=== PATIENT | female | born 1970 | race Caucasian/White ===

== ENCOUNTER 2017-11-14 07:56 | Day surgery (SDC) | payer MEDICAID ==
[~2017-11-14 07:56] MED LIST: Lidocaine 1% 4 ML ONE; Lidocaine 1%/Sod Bicarbonate in NS 8.4% 1 ML Syringe IDERM PRN; Midazolam 1 MG/ML 2 ML SDV ONE; Morphine PF 1 MG/ML Amp ONE; Propofol 200 MG/20 ML SDV ONE; Sodium Chloride 0.9% 10 ML Syringe FLUSH PRN; fentaNYL 100 MCG/2 ML SDV ONE
[2017-11-14] MEDS ORDERED: Ketorolac 30 MG/ML SDV ONE ×2 (08:00→11:09)
[2017-11-14] MEDS: Lactated Ringers 1,000 ML IV SCH ×2 (08:20→12:43)
[2017-11-14] MEDS ORDERED: ceFAZolin 1 GM Vial ONE (08:23)
[2017-11-14] MEDS ORDERED: Propofol 200 MG/20 ML SDV ONE ×3 (08:25→11:08)
--- NOTE | 2017-11-14 08:45 | PCM.CONS ---
H&P History of Present Illness - General Date of Service: 11/14/17 Admit Problem/Dx: Admission Diagnosis/Problem Admission Diagnosis/Problem Osteoarthritis of knee Source of Information: Patient, Provider, RN, RN Notes Reviewed, Other ( surgical notes ) - History of Present Illness Initial Comments - Free Text/Narative: Imani Curry is a 47 yo female patient of Dr. Littlejohn who is post-operative day 0 of right TKA. Hospital medicine was consulted for post-operative medical care. At this time she is resting comfortably in bed. Pain is controlled. She denies any chest pain, shortness of breath, palpitations, nausea, or vomiting. She carries a history of: HTN, IBS, chronic back pain, osteoporosis, lower back fusion, peripheral neuropathy, anxiety, insomnia, obesity. She was never a smoker. She is a full code. Her primary care provider is Dr. Chau in [place]. Right Knee Pain Score (Numeric/FACES): 6 - Related Data Allergies/Adverse Reactions: Allergies Allergy/AdvReac Type Severity Reaction Status Date / Time ampicillin Allergy Airway Verified 11/14/17 13:38 Tightness Home Medications: Home Meds Gabapentin [Neurontin] 1,200 mg PO TID 04/17/16 [History] Dhea/Estriol/Testerone 1 dose VAG ASDIRECTED 11/11/17 [History] Fluticasone Propionate [Flonase Allergy Relief] 1 - 2 spray NASBOTH DAILY PRN [History] LORazepam [LORazepam] 0.5 mg PO TID PRN 11/11/17 [History] Metoprolol Succinate [Toprol Xl] 150 mg PO DAILY 11/11/17 [History] Multivitamin [Daily Multiple Vitamin] 1 tab PO DAILY 11/11/17 [History] Progesterone,Micronized [Prometrium] 200 mg PO BEDTIME 11/11/17 [History] Spironolact/Hydrochlorothiazid [Spironolactone-HCTZ 25-25] 1 tab PO DAILY [History] Zolpidem Tartrate [Ambien] 10 mg PO BEDTIME PRN 11/11/17 [History] traMADol HCl [Tramadol HCl] 50 mg PO TID PRN 11/11/17 [History] Past Medical History HEENT History: Reports: Impaired Vision Cardiovascular History: Reports: Hypertension Respiratory History: Reports: None Gastrointestinal History: Reports: Chronic Diarrhea, Irritable Bowel Syndrome Genitourinary History: Reports: Other (See Below) [employer] INTERN History: Reports: Other (See Below) Other OB/BYN History: decreased libido, anorgasmia Musculoskeletal History: Reports: Back Pain, Chronic, Osteoarthritis, Other ( See Below) Other Musculoskeletal History: lower back fusion Neurological History: Reports: Neuropathy, Peripheral Psychiatric History: Reports: Anxiety, Other (See Below) Other Psychiatric History: insomnia Endocrine/Metabolic History: Reports: Obesity/BMI 30+ Hematologic History: Reports: None Immunologic History: Reports: None Oncologic (Cancer) History: Reports: None Dermatologic History: Reports: None - Past Surgical History Head Surgeries/Procedures: Reports: None HEENT Surgical History: Reports: None Cardiovascular Surgical History: Reports: None Respiratory Surgical History: Reports: None GI Surgical History: Reports: Appendectomy, Colonoscopy Female Surgical History: Reports: Hysterectomy Neurological Surgical History: Reports: None Other Musculoskeletal Surgeries/Procedures:: bilateral bunionectomies Oncologic Surgical History: Reports: None Dermatological Surgical History: Reports: None Social & Family History - Tobacco Use Smoking Status *Q: Never Smoker - Caffeine Use Caffeine Use: Reports: Soda - Recreational Drug Use Recreational Drug Use: No H&P Review of Systems - Review of Systems: Review Of Systems: See Below General: Reports: No Symptoms HEENT: Reports: No Symptoms Pulmonary: Reports: No Symptoms Cardiovascular: Reports: No Symptoms Gastrointestinal: Reports: Nausea. Denies: Abdominal Pain, Constipation, Diarrhea, Decreased Appetite, Difficulty Swallowing, Vomiting Genitourinary: Reports: No Symptoms Musculoskeletal: Reports: Joint Pain Skin: Reports: No Symptoms Psychiatric: Reports: No Symptoms Neurological: Reports: No Symptoms Hematologic/Lymphatic: Reports: No Symptoms Immunologic: Reports: No Symptoms Exam - Exam Exam: See Below - Exam Quality Assessment: Urinary Catheter, DVT Prophylaxis General: Alert, Oriented, Cooperative. No: Mild Distress HEENT: PERRLA, Hearing Intact, Mucosa Moist & Mexican Hat, Nares Patent, Normal Nasal Septum, Posterior Pharynx Clear, Conjunctiva Clear, EOMI, EACs Clear, TMs Clear Neck: Supple, Trachea Midline Lungs: Clear to Auscultation, Normal Respiratory Effort Cardiovascular: Regular Rate, Regular Rhythm GI/Abdominal Exam: Normal Bowel Sounds, Soft, Non-Tender, No Organomegaly, No Distention, No Abnormal Bruit, No Mass, Pelvis Stable (Female) Exam: Deferred Rectal (Female) Exam: Deferred Back Exam: Normal Inspection, Full Range of Motion Extremities: Normal Inspection, No Pedal Edema, Normal Capillary Refill, Leg Pain, Limited Range of Motion, Other (BRAULIO bandage in place on right leg. Bandage is dry and intact. Cooling pack in place ) Peripheral Pulses: 2+: Radial (L), Radial (R), Posterior Tibial (L), Posterior Tibial (R), Dorsalis Pedis (L), Dorsalis Pedis (R) Skin: Warm, Dry, Intact Neurological: Cranial Nerves Intact (grossly ) Neuro Extensive - Mental Status: Alert, Oriented x3, Normal Mood/Affect, Normal Cognition, Memory Intact Psychiatric: Alert, Normal Affect, Normal Mood - Patient Data Result Diagrams: 11/14/17 08:22 Consult PN Assessment/Plan POD#: 0 Procedures: Procedures C-REACTIVE PROTEIN (04/17/16) COMPLETE CBC W/AUTO DIFF WBC (04/17/16) COMPREHEN METABOLIC PANEL (04/17/16) CT ABD & PELV W/CONTRAST (04/17/16) EMERGENCY DEPT VISIT (04/17/16) HYDRATE IV INFUSION ADD-ON (04/17/16) MR-STAPH DNA AMP PROBE (11/01/17) ROUTINE VENIPUNCTURE (04/17/16) THER/PROPH/DIAG INJ IV PUSH (04/17/16) TX/PRO/DX INJ NEW DRUG ADDON (04/17/16) TX/PRO/DX INJ SAME DRUG CARDIAC RN (04/17/16) URINALYSIS AUTO W/SCOPE (04/17/16) (1) S/P total knee arthroplasty SNOMED Code(s): 1083840701094, 2787257513701 Code(s): Z96.659 - PRESENCE OF UNSPECIFIED ARTIFICIAL KNEE JOINT Priority: High Current Visit: Yes Qualifiers: Laterality: right Qualified Code(s): Z96.651 - Presence of right artificial knee joint (2) Osteoarthritis SNOMED Code(s): 626790253 Code(s): M19.90 - UNSPECIFIED OSTEOARTHRITIS, UNSPECIFIED SITE Priority: High Current Visit: Yes Qualifiers: Osteoarthritis location: knee Osteoarthritis type: primary Laterality: right Qualified Code(s): M17.11 - Unilateral primary osteoarthritis, right knee (3) HTN (hypertension) SNOMED Code(s): 96785307 Code(s): I10 - ESSENTIAL (PRIMARY) HYPERTENSION Priority: Low Current Visit: No Qualifiers: Hypertension type: unspecified Qualified Code(s): I10 - Essential (primary ) hypertension (4) IBS (irritable bowel syndrome) SNOMED Code(s): 20616686 Code(s): K58.9 - IRRITABLE BOWEL SYNDROME WITHOUT DIARRHEA Priority: Low Current Visit: No Qualifiers: Irritable bowel syndrome type: unspecified Qualified Code(s): K58.9 - Irritable bowel syndrome without diarrhea (5) Chronic back pain SNOMED Code(s): 534335599 Code(s): M54.9 - DORSALGIA, UNSPECIFIED; G89.29 - OTHER CHRONIC PAIN Priority: Low Current Visit: No Qualifiers: Back pain location: back pain in unspecified location Back pain laterality : unspecified Qualified Code(s): M54.9 - Dorsalgia, unspecified; G89.29 - Other chronic pain; G89.29 - Other chronic pain (6) Peripheral neuropathy SNOMED Code(s): 132704783 Code(s): G62.9 - POLYNEUROPATHY, UNSPECIFIED Priority: Low Current Visit : No Qualifiers: Peripheral neuropathy type: polyneuropathy, unspecified Qualified Code(s): G62.9 - Polyneuropathy, unspecified (7) Anxiety SNOMED Code(s): 03610916 Code(s): F41.9 - ANXIETY DISORDER, UNSPECIFIED Priority: Low Current Visit: No (8) Insomnia SNOMED Code(s): 979894222 Code(s): G47.00 - INSOMNIA, UNSPECIFIED Priority: Low Current Visit: No Qualifiers: Insomnia type: unspecified Qualified Code(s): G47.00 - Insomnia, unspecified (9) Obesity (BMI 30-39.9) SNOMED Code(s): 878891842 Code(s): E66.9 - OBESITY, UNSPECIFIED Priority: Low Current Visit: No (10) Nausea SNOMED Code(s): 711394767 Code(s): R11.0 - NAUSEA Priority: High Current Visit: Yes Problem List Initiated/Reviewed/Updated: Yes Plan: I/P: Acute: S/P Right total knee arthroplasty - post-operative day 0 -DVT prophylaxis and pain management per primary care team -PT/OT -IS/RT -Monitor oxygen saturation -Titrate oxygen as needed -Vital signs stable -Monitor labs -Pre-operative Hgb was 15.2 -Pre-operative leukocytosis (13.4), CRP was normal Osteoarthritis of Right knee -Pain management per primary care team Hypokalemia -Potassium 3.2 pre-operatively -Supplement -Monitor with AM labs Nausea, mild -Post-operative -Zofran now -Scopolamine patch if needed Chronic (Home meds): Long Qt - telemetry HTN IBS Chronic back pain Peripheral neuropathy Anxiety Insomnia Obesity Plan: CM for discharge planning GI prophylaxis Home medications as indicated Other orders as listed above Routine AM labs She is a full code. Her PCP is Dr. Chau in [place] Thank you for allowing us to participate in the care of this patient!! Requesting Provider: Dr. Littlejohn Date Consult Requested: 11/14/17 Reason for Consult: Post-operative medical management Patient History Reviewed: Yes Admission H&P Reviewed: Yes Time Spent (in minutes): 25
[2017-11-14] MEDS ORDERED: Bupivacaine 0.25% 30 ML SDV ONE (09:10)
[2017-11-14] MEDS ORDERED: Clindamycin Phosphate 900 MG in Dextrose 5% in Water 100 ML IV ONE ×2 (09:30)
--- NOTE | 2017-11-14 09:48 | PCM.PREANE ---
Preanesthetic Assessment - Anesthesia/Transfusion/Family Hx Anesthesia History: Prior Anesthesia Reaction Type of Anesthesia Reaction: Excessive Nausea/Vomiting Family History of Anesthesia Reaction: No Transfusion History: No Prior Transfusion(s) - Review of Systems General: No Symptoms Pulmonary: No Symptoms Cardiovascular: No Symptoms Gastrointestinal: No Symptoms Neurological: No Symptoms Other: Reports: Easy Bruising, Sinus Problem (infections frequent), Anxiety - Physical Assessment NPO Status Date: 11/13/17 NPO Status Time: 23:00 O2 Sat by Pulse Oximetry: 96 Respiratory Rate: 16 Vital Signs: Last Vital Signs Temp 97.8 F 11/14/17 08:20 Pulse 72 11/14/17 08:20 Resp 16 11/14/17 08:20 BP 134/93 H 11/14/17 08:20 Pulse Ox 96 11/14/17 08:20 Height: 5 ft 7 in Weight: 102.058 kg ASA Class: 2 Mental Status: Alert & Oriented x3 Airway Class: Mallampati = 1 Dentition: Reports: Normal Dentition Thyro-Mental Finger Breadths: 3 Mouth Opening Finger Breadths: 3 ROM/Head Extension: Full Lungs: Clear to Auscultation, Normal Respiratory Effort Cardiovascular: Regular Rate, Regular Rhythm - Lab Values: Laboratory Last Values Sodium 140 mEq/L (136-145) 11/14/17 08:22 Potassium 3.2 mEq/L (3.5-5.1) L 11/14/17 08:22 Chloride 99 mEq/L (98-107) 11/14/17 08:22 Carbon Dioxide 30 mEq/L (21-32) 11/14/17 08:22 Anion Gap 14.2 (5-15) 11/14/17 08:22 BUN 14 mg/dL (7-18) 11/14/17 08:22 Creatinine 0.8 mg/dL (0.55-1.02) 11/14/17 08:22 Est Cr Clr Drug Dosing TNP 11/14/17 08:22 Estimated GFR (MDRD) > 60 mL/min (>60) 11/14/17 08:22 BUN/Creatinine Ratio 17.5 (14-18) 11/14/17 08:22 Glucose 119 mg/dL (74-106) H 11/14/17 08:22 Calcium 9.7 mg/dL (8.5-10.1) 11/14/17 08:22 - Allergies Allergies/Adverse Reactions: Allergies Allergy/AdvReac Type Severity Reaction Status Date / Time ampicillin Allergy Airway Verified 11/11/17 13:19 Tightness - Blood Blood Available: No - Anesthesia Plan Beta Mic: Metoprolol Med Last Dose Date: 11/14/17 Med Last Dose Time: 06:00 - Acknowledgements Anesthesia Type Planned: Spinal Pt an Appropriate Candidate for the Planned Anesthesia: Yes Alternatives and Risks of Anesthesia Discussed w Pt/Guardian: Yes Pt/Guardian Understands and Agrees with Anesthesia Plan: Yes PreAnesthesia Questionnaire HEENT History: Reports: Impaired Vision Cardiovascular History: Reports: Hypertension Respiratory History: Reports: None Gastrointestinal History: Reports: Irritable Bowel Syndrome Genitourinary History: Reports: Other (See Below) SAFETY RISK LEAD History: Reports: Other (See Below) Other OB/BYN History: decreased libido, anorgasmia Musculoskeletal History: Reports: Back Pain, Chronic, Osteoarthritis, Other ( See Below) Other Musculoskeletal History: lower back fusion Neurological History: Reports: Neuropathy, Peripheral Psychiatric History: Reports: Anxiety, Other (See Below) Other Psychiatric History: insomnia Endocrine/Metabolic History: Reports: Obesity/BMI 30+ Hematologic History: Reports: None Immunologic History: Reports: None Oncologic (Cancer) History: Reports: None Dermatologic History: Reports: None - Past Surgical History Head Surgeries/Procedures: Reports: None HEENT Surgical History: Reports: None Cardiovascular Surgical History: Reports: None Respiratory Surgical History: Reports: None GI Surgical History: Reports: Appendectomy, Colonoscopy Female Surgical History: Reports: Hysterectomy Neurological Surgical History: Reports: None, Spinal Fusion, Other (See Below) Other Musculoskeletal Surgeries/Procedures:: bilateral bunionectomies Oncologic Surgical History: Reports: None Dermatological Surgical History: Reports: None - SUBSTANCE USE Smoking Status *Q: Never Smoker Tobacco Use Within Last Twelve Months: No Second Hand Smoke Exposure: No Days Per Week of Alcohol Use: 0 Recreational Drug Use History: No - HOME MEDS Home Medications: Home Meds Gabapentin [Neurontin] 1,200 mg PO TID 04/17/16 [History] Dhea/Estriol/Testerone 1 dose VAG ASDIRECTED 11/11/17 [History] Fluticasone Propionate [Flonase Allergy Relief] 1 - 2 spray NASBOTH DAILY PRN [History] LORazepam [LORazepam] 0.5 mg PO TID PRN 11/11/17 [History] Metoprolol Succinate [Toprol Xl] 150 mg PO DAILY 11/11/17 [History] Multivitamin [Daily Multiple Vitamin] 1 tab PO DAILY 11/11/17 [History] Progesterone,Micronized [Prometrium] 200 mg PO BEDTIME 11/11/17 [History] Spironolact/Hydrochlorothiazid [Spironolactone-HCTZ 25-25] 1 tab PO DAILY [History] Zolpidem Tartrate [Ambien] 10 mg PO BEDTIME PRN 11/11/17 [History] traMADol HCl [Tramadol HCl] 50 mg PO TID PRN 11/11/17 [History] - CURRENT (IN HOUSE) MEDS Current Meds: Current Medications Hydrocodone Bitart/Acetaminophen (Gray 325-5 Mg) 1 - 2 tab PO Q4H PRN PRN Reason: Pain Aspirin (Ecotrin) 325 mg PO BID BLANCO Bisacodyl (Dulcolax) 5 mg PO DAILY PRN PRN Reason: Constipation Morphine Sulfate 8 mg/Epinephrine HCl 0.3 mg/Ketorolac Tromethamine 30 mg/ Sodium Chloride 27.9 ml 0 mg .XX ONETIME ONE Stop: 11/14/17 10:01 Cyclobenzaprine HCl (Flexeril) 10 mg PO TID PRN PRN Reason: Spasms Diphenhydramine HCl (Benadryl) 25 mg IVPUSH Q4H PRN PRN Reason: Nausea Docusate Sodium (Colace) 100 mg PO BID BLANCO Famotidine (Pepcid) 20 mg PO BID [facility] Lactated Ringer's (Ringers, Lactated) 1,000 mls @ 125 mls/hr IV ASDIRECTED [facility] Stop: 11/14/17 23:00 Last Admin: 11/14/17 08:20 Dose: 125 mls/hr Clindamycin Phosphate 900 mg/ (Dextrose/Water) 106 mls @ 100 mls/hr IV Q6H [facility] Stop: 11/15/17 07:01 Clindamycin Phosphate 900 mg/ (Dextrose/Water) 106 mls @ 212 mls/hr IV ONETIME ONE Stop: 11/14/17 09:59 Last Admin: 11/14/17 09:08 Dose: 212 mls/hr Ketorolac Tromethamine (Toradol) 15 mg IVPUSH Q6H PRN PRN Reason: Pain Lidocaine/Sodium Bicarbonate (Buffered Lidocaine 1% In Ns 8.4%) 0.25 ml IDERM ONETIME PRN PRN Reason: Prior to IV Start Stop: 11/14/17 18:00 Last Admin: 11/14/17 08:19 Dose: 0.25 ml Magnesium Hydroxide (Milk Of Magnesia) 30 ml PO BID PRN PRN Reason: Constipation Morphine Sulfate (Morphine) 2 mg IVPUSH Q2H PRN PRN Reason: Breakthrough Pain Naloxone HCl (Narcan) 0.1 mg IVPUSH Q5M PRN PRN Reason: Oversedation Ondansetron HCl (Zofran) 4 mg IVPUSH Q6H PRN PRN Reason: Nausea/Vomiting Senna (Senna) 8.6 mg PO BID PRN PRN Reason: Constipation Sodium Chloride (Saline Flush) 10 ml FLUSH ASDIRECTED PRN PRN Reason: Keep Vein Open Stop: 11/14/17 18:00 Discontinued Medications Bupivacaine HCl (Marcaine 0.25%) Confirm Administered Dose 30 ml .ROUTE .STK- MED ONE Stop: 11/14/17 09:11 Cefazolin Sodium (Ancef) Confirm Administered Dose 2 gm .ROUTE .STK-MED ONE Stop: 11/14/17 08:24 Clindamycin Phosphate (Cleocin) Confirm Administered Dose 900 mg .ROUTE .STK- MED ONE Stop: 11/14/17 09:11 Fentanyl (Sublimaze) Confirm Administered Dose 100 mcg .ROUTE .STK-MED ONE Stop: 11/14/17 07:43 Lidocaine HCl (Xylocaine-Mpf 1%) Confirm Administered Dose 4 mls @ as directed .ROUTE .STK-MED ONE Stop: 11/14/17 07:42 Iodine (Iodine 2% Mild Tincture) Confirm Administered Dose 30 ml .ROUTE .STK- MED ONE Stop: 11/14/17 09:11 Ketorolac Tromethamine (Toradol) Confirm Administered Dose 30 mg .ROUTE .STK- MED ONE Stop: 11/14/17 08:01 Midazolam HCl (Versed 1 Mg/Ml) Confirm Administered Dose 2 mg .ROUTE .STK-MED ONE Stop: 11/14/17 07:43 Morphine Sulfate (Duramorph Pf) Confirm Administered Dose 1 mg .ROUTE .STK-MED ONE Stop: 11/14/17 07:35 Propofol (Diprivan 20 Ml) Confirm Administered Dose 200 mg .ROUTE .STK-MED ONE Stop: 11/14/17 07:43 Propofol (Diprivan 20 Ml) Confirm Administered Dose 200 mg .ROUTE .STK-MED ONE Stop: 11/14/17 08:26 Tranexamic Acid (Cyklokapron) Confirm Administered Dose 1,000 mg .ROUTE .STK- MED ONE Stop: 11/14/17 09:11 Vancomycin HCl (Vancomycin) Confirm Administered Dose 1 gm .ROUTE .STK-MED ONE Stop: 11/14/17 09:11
[2017-11-14] MEDS ORDERED: Midazolam 1 MG/ML 2 ML SDV ONE (10:25)
[2017-11-14] MEDS ORDERED: fentaNYL 100 MCG/2 ML SDV IVPUSH PRN (10:26)
[2017-11-14] MEDS ORDERED: Promethazine 6.25 MG in Sodium Chloride 0.9% 9 ML IV PRN (10:26)
[2017-11-14] MEDS ORDERED: Ondansetron 4 MG/2 ML SDV IVPUSH PRN ×2 (10:26→11:00)
[2017-11-14] MEDS ORDERED: Lactated Ringers 1,000 ML ONE ×2 (10:27→11:23)
[2017-11-14] MEDS ORDERED: Ondansetron 4 MG/2 ML SDV ONE (10:29)
[2017-11-14] MEDS: Iodine/Sodium Iodide 2% Tincture 30 ML Bottle ONE ×2 (10:54→11:10)
[2017-11-14] MEDS: Clindamycin Phosphate 900 MG/6 ML AdvVial ONE ×2 (10:54→11:13)
[2017-11-14] MEDS: Morphine 8 MG, EPINEPHrine 0.3 MG, Ketorolac 30 MG, Sodium Chloride 0.9% 27.9 ML ONE ×8 (10:55→11:18)
[2017-11-14] MEDS: Vancomycin 1 GM SDV ONE ×2 (10:55→11:20)
[2017-11-14] MEDS: Bupivacaine 0.25% 30 ML SDV ONE ×2 (10:55→11:19)
[2017-11-14] MEDS ORDERED: Sennosides 8.6 MG Tab PO PRN (11:00)
[2017-11-14] MEDS ORDERED: Naloxone 0.4 MG/ML SDV IVPUSH PRN (11:00)
[2017-11-14] MEDS ORDERED: Bisacodyl 5 MG Tab PO PRN (11:00)
[2017-11-14] MEDS ORDERED: diphenhydrAMINE 50 MG/ML SDV IVPUSH PRN (11:00)
[2017-11-14] MEDS ORDERED: Magnesium Hydroxide 400 MG/5 ML Susp 30 ML Cup PO PRN (11:00)
[2017-11-14] MEDS ORDERED: Morphine 4 MG/ML Syringe IVPUSH PRN (11:00)
[2017-11-14] MEDS ORDERED: LORazepam 0.5 MG Tab PO PRN (11:44)
[2017-11-14] MEDS ORDERED: Fluticasone Propionate [Flonase Allergy Relief] NASBOTH PRN (11:44)
[2017-11-14] MEDS ORDERED: DHEA VAG SCH (11:45)
[2017-11-14] MEDS ORDERED: ESTRIOL VAG SCH (11:45)
[2017-11-14] MEDS ORDERED: [UNRECOGNIZED DRUG - OTHER] VAG SCH (11:45)
[2017-11-14] MEDS ORDERED: Ropivacaine 0.5% 5 MG/ML 30 ML SDV ONE (11:53)
[2017-11-14] MEDS ORDERED: EPINEPHrine 1 MG/ML SDV ONE (11:53)
--- NOTE | 2017-11-14 12:01 | PCM.POSTAN ---
POST ANESTHESIA ASSESSMENT - MENTAL STATUS Mental Status: Alert, Oriented - VITAL SIGNS Pulse Rate: 77 SaO2: 98 Resp Rate: 12 Blood Pressure: 113/60 Temperature: 98.4 F - RESPIRATORY Respiratory Status: Respiratory Rate WNL, Airway Patent, O2 Saturation Stable, Supplemental Oxygen - CARDIOVASCULAR CV Status: Pulse Rate WNL, Blood Pressure Stable - GASTROINTESTINAL GI Status: No Symptoms - PAIN Pain Score: 0 - POST OP HYDRATION Hydration Status: Adequate & Stable
[2017-11-14] MEDS ORDERED: Scopolamine 1 MG Transdermal Patch TOP PRN (13:34)
--- NOTE | 2017-11-14 13:50 | CR ---
Right knee: AP and lateral views of the right knee were obtained. Parison: No prior study. Knee prosthesis is seen. Components are aligned. Underlying bony structures are intact. Impression: 1. Satisfactory postoperative radiographic appearance, recently placed right knee prosthesis. Diagnostic code #2
--- NOTE | 2017-11-14 14:25 | PCM.SN ---
- Free Text/Narrative Note: Right selective femoral nerve block at the adductor canal for post-procedure pain control under US guidance requested by Dr. Littlejohn. Time Out: 1211 Start: 1215 End: 1225 Chart reviewed. Consent signed. Questions answered. Appropriate monitors applied. Time out performed. Right mid-shaft femur identified with ultrasound, scanning medially of femur, the femoral artery in the adductor canal visualized , and the femoral nerve located laterally to the artery. The skin was prepped lateral to the ultrasound probe with chlorahexadine. The 21ga 4 insulated block needle was inserted under direct ultrasound guidance into the adductor canal. 25mL of 0.5% ropivacaine with 1:200,000 epinephrine was injected circumferentially around the nerve with intermittent negative aspiration noted. Patient tolerated the procedure well. See pictures on progress note and vital signs on nurses notes. Block completed in PACU with Kusum Watkins's STRETCH BOX TENDER assist. Nelson Blanchard CRNA
[2017-11-14] MEDS: Ketorolac 15 MG/ML SDV IVPUSH PRN (14:55)
[2017-11-14] MEDS ORDERED: Potassium Chloride 20 MEQ Tab.ER PO ONE (16:00)
[2017-11-14] MEDS: Gabapentin 600 MG Tab PO SCH ×2 (16:12→20:32)
[2017-11-14] MEDS: Clindamycin Phosphate 900 MG in Dextrose 5% in Water 100 ML IV SCH ×2 (17:30)
[2017-11-14] MEDS: Docusate Sodium 100 MG Cap PO SCH (20:32)
[2017-11-14] MEDS: Acetaminophen/HYDROcodone 325-5 MG Tab PO PRN (20:33)
[2017-11-14] MEDS: Famotidine 20 MG Tab PO SCH (20:33)
[2017-11-14] MEDS: Potassium Chloride 20 MEQ Tab.ER PO SCH (20:33)
[2017-11-14] MEDS ORDERED: Zolpidem 10 MG Tab PO PRN (21:00)
[2017-11-15] MEDS: Acetaminophen/HYDROcodone 325-5 MG Tab PO PRN ×3 (00:49→11:38)
[2017-11-15] MEDS: Clindamycin Phosphate 900 MG in Dextrose 5% in Water 100 ML IV SCH ×6 (00:58→10:31)
[2017-11-15] MEDS: Ketorolac 15 MG/ML SDV IVPUSH PRN ×2 (02:23→13:52)
[2017-11-15] MEDS ORDERED: PROGESTERONE MICRONIZED 200 MG PO SCH (06:00)
--- NOTE | 2017-11-15 06:35 | PCM.CONSN ---
- General Info Date of Service: 11/15/17 Admission Dx/Problem (Free Text): Admission Diagnosis/Problem Admission Diagnosis/Problem Osteoarthritis of knee Subjective Update: In to see Imani this morning. She is doing very well. PT/OT has been working with her. They're going to give her shower soon. No overnight complaints. Pain is controlled at 4 out of 10. She has no concerns. Functional Status: Reports: Pain Controlled, Tolerating Diet, Ambulating, Urinating, Incentive Spirometry. Denies: New Symptoms - Review of Systems General: Reports: No Symptoms. Denies: Weakness HEENT: Reports: No Symptoms Pulmonary: Reports: No Symptoms. Denies: Shortness of Breath, Cough, Sputum, Wheezing Cardiovascular: Reports: No Symptoms. Denies: Chest Pain, Dyspnea on Exertion Gastrointestinal: Reports: No Symptoms. Denies: Abdominal Pain, Constipation, Diarrhea, Nausea, Vomiting Genitourinary: Reports: No Symptoms. Denies: Dysuria, Frequency, Burning, Pain Musculoskeletal: Reports: Joint Pain Skin: Reports: No Symptoms Neurological: Reports: No Symptoms Psychiatric: Reports: No Symptoms - Patient Data Vitals - Most Recent: Last Vital Signs Temp 98.4 F 11/15/17 00:39 Pulse 88 11/14/17 14:02 Resp 18 11/15/17 05:00 BP 125/70 11/15/17 00:39 Pulse Ox 96 11/15/17 05:00 Weight - Most Recent: 225 lb I&O - Last 24 Hours: Intake & Output 11/14/17 11/14/17 11/15/17 14:59 22:59 06:59 Intake Total 800 400 Output Total 315 400 Balance 485 0 Lab Results Last 24 Hours: Laboratory Results - last 24 hr 11/14/17 Range/Units 08:22 Sodium 140 (136-145) mEq/L Potassium 3.2 L (3.5-5.1) mEq/L Chloride 99 (98-107) mEq/L Carbon Dioxide 30 (21-32) mEq/L Anion Gap 14.2 (5-15) BUN 14 (7-18) mg/dL Creatinine 0.8 (0.55-1.02) mg/dL Est Cr Clr Drug Dosing TNP Estimated GFR (MDRD) > 60 (>60) mL/min BUN/Creatinine Ratio 17.5 (14-18) Glucose 119 H (74-106) mg/dL Calcium 9.7 (8.5-10.1) mg/dL Med Orders - Current: Current Medications Hydrocodone Bitart/Acetaminophen ([place] 325-5 Mg) 1 - 2 tab PO Q4H PRN PRN Reason: Pain Last Admin: 11/15/17 00:49 Dose: 2 tab Aspirin (Ecotrin) 325 mg PO BID [facility] Bisacodyl (Dulcolax) 5 mg PO DAILY PRN PRN Reason: Constipation Cyclobenzaprine HCl (Flexeril) 10 mg PO TID PRN PRN Reason: Spasms Diphenhydramine HCl (Benadryl) 25 mg IVPUSH Q4H PRN PRN Reason: Nausea Docusate Sodium (Colace) 100 mg PO BID [facility] Last Admin: 11/14/17 20:32 Dose: 100 mg Famotidine (Pepcid) 20 mg PO BID [facility] Last Admin: 11/14/17 20:33 Dose: 20 mg Gabapentin (Neurontin) 1,200 mg PO TID [facility] Last Admin: 11/14/17 20:32 Dose: 1,200 mg Hydrochlorothiazide (Hydrochlorothiazide) 25 mg PO DAILY [facility] Clindamycin Phosphate 900 mg/ (Dextrose/Water) 106 mls @ 212 mls/hr IV Q8H [facility] Stop: 11/15/17 10:29 Last Admin: 11/15/17 02:25 Dose: 212 mls/hr Ketorolac Tromethamine (Toradol) 15 mg IVPUSH Q6H PRN PRN Reason: Pain Last Admin: 11/15/17 02:23 Dose: 15 mg Lorazepam (Ativan) 0.5 mg PO TID PRN PRN Reason: Anxiety Magnesium Hydroxide (Milk Of Magnesia) 30 ml PO BID PRN PRN Reason: Constipation Metoprolol Succinate (Toprol Xl) 150 mg PO DAILY [facility] Morphine Sulfate (Morphine) 2 mg IVPUSH Q2H PRN PRN Reason: Breakthrough Pain Multivitamins (Thera) 1 each PO DAILY [facility] Naloxone HCl (Narcan) 0.1 mg IVPUSH Q5M PRN PRN Reason: Oversedation Ondansetron HCl (Zofran) 4 mg IVPUSH Q6H PRN PRN Reason: Nausea/Vomiting Last Admin: 11/14/17 16:06 Dose: 4 mg Dhea/Estriol/Testerone Compounded Med 0 each VAG ASDIRECTED [facility] Fluticasone Propionate [Flonase Allergy Relief] 1 - 2 each NASBOTH DAILY PRN PRN Reason: Allergies Progesterone, Micronized [ Prometrium] 200 Mg 0 each PO ACBRK [facility] Potassium Chloride (Klor-Con M20) 40 meq PO TID [facility] Stop: 11/15/17 15:01 Last Admin: 11/14/17 20:33 Dose: 40 meq Scopolamine (Scopolamine) 1 each TOP ONETIME PRN PRN Reason: Nausea/Vomiting Senna (Senna) 8.6 mg PO BID PRN PRN Reason: Constipation Spironolactone (Aldactone) 25 mg PO DAILY [facility] Zolpidem Tartrate (Ambien) 10 mg PO BEDTIME PRN PRN Reason: Insomnia Discontinued Medications Bupivacaine HCl (Marcaine 0.25%) Confirm Administered Dose 30 ml .ROUTE .STK- MED ONE Stop: 11/14/17 09:11 Bupivacaine HCl (Marcaine 0.25%) Confirm Administered Dose 30 ml .ROUTE .STK- MED ONE Stop: 11/14/17 09:47 Last Admin: 11/14/17 11:19 Dose: 30 ml Cefazolin Sodium (Ancef) Confirm Administered Dose 2 gm .ROUTE .STK-MED ONE Stop: 11/14/17 08:24 Clindamycin Phosphate (Cleocin) Confirm Administered Dose 900 mg .ROUTE .STK- MED ONE Stop: 11/14/17 09:11 Last Admin: 11/14/17 11:13 Dose: 900 mg Morphine Sulfate 8 mg/Epinephrine HCl 0.3 mg/Ketorolac Tromethamine 30 mg/ Sodium Chloride 27.9 ml 0 mg .XX ONETIME ONE Stop: 11/14/17 10:01 Last Admin: 11/14/17 11:18 Dose: 38.3 mg Epinephrine HCl (Adrenalin) Confirm Administered Dose 1 mg .ROUTE .STK-MED ONE Stop: 11/14/17 11:54 Fentanyl (Sublimaze) Confirm Administered Dose 100 mcg .ROUTE .STK-MED ONE Stop: 11/14/17 07:43 Fentanyl (Sublimaze) 50 mcg IVPUSH Q5M PRN PRN Reason: Pain Stop: 11/14/17 10:27 Lactated Ringer's (Ringers, Lactated) 1,000 mls @ 125 mls/hr IV ASDIRECTED [facility] Stop: 11/14/17 23:00 Last Admin: 11/14/17 12:43 Dose: 125 mls/hr Lidocaine HCl (Xylocaine-Mpf 1%) Confirm Administered Dose 4 mls @ as directed .ROUTE .STK-MED ONE Stop: 11/14/17 07:42 Clindamycin Phosphate 900 mg/ (Dextrose/Water) 106 mls @ 212 mls/hr IV ONETIME ONE Stop: 11/14/17 09:59 Last Admin: 11/14/17 09:08 Dose: 212 mls/hr Lactated Ringer's (Ringers, Lactated) Confirm Administered Dose 1,000 mls @ as directed .ROUTE .STK-MED ONE Stop: 11/14/17 10:28 Promethazine HCl 6.25 mg/ (Sodium Chloride) 9.25 mls @ 5 mls/min IV ONETIME PRN PRN Reason: Nausea Stop: 11/14/17 16:00 Lactated Ringer's (Ringers, Lactated) Confirm Administered Dose 1,000 mls @ as directed .ROUTE .STK-MED ONE Stop: 11/14/17 11:24 Iodine (Iodine 2% Mild Tincture) Confirm Administered Dose 30 ml .ROUTE .STK- MED ONE Stop: 11/14/17 09:11 Last Admin: 11/14/17 11:10 Dose: 18 ml Ketorolac Tromethamine (Toradol) Confirm Administered Dose 30 mg .ROUTE .STK- MED ONE Stop: 11/14/17 08:01 Ketorolac Tromethamine (Toradol) Confirm Administered Dose 30 mg .ROUTE .STK- MED ONE Stop: 11/14/17 11:10 Lidocaine/Sodium Bicarbonate (Buffered Lidocaine 1% In Ns 8.4%) 0.25 ml IDERM ONETIME PRN PRN Reason: Prior to IV Start Stop: 11/14/17 18:00 Last Admin: 11/14/17 08:19 Dose: 0.25 ml Midazolam HCl (Versed 1 Mg/Ml) Confirm Administered Dose 2 mg .ROUTE .STK-MED ONE Stop: 11/14/17 07:43 Midazolam HCl (Versed 1 Mg/Ml) Confirm Administered Dose 2 mg .ROUTE .STK-MED ONE Stop: 11/14/17 10:26 Morphine Sulfate (Duramorph Pf) Confirm Administered Dose 1 mg .ROUTE .STK-MED ONE Stop: 11/14/17 07:35 Ondansetron HCl (Zofran) Confirm Administered Dose 4 mg .ROUTE .STK-MED ONE Stop: 11/14/17 10:30 Ondansetron HCl (Zofran) 4 mg IVPUSH ONETIME PRN PRN Reason: Nausea/Vomiting Stop: 11/14/17 16:00 Last Admin: 11/14/17 12:30 Dose: 4 mg Potassium Chloride (Klor-Con M20) 40 meq PO ONETIME ONE Stop: 11/14/17 16:01 Last Admin: 11/14/17 16:13 Dose: 40 meq Propofol (Diprivan 20 Ml) Confirm Administered Dose 200 mg .ROUTE .STK-MED ONE Stop: 11/14/17 07:43 Propofol (Diprivan 20 Ml) Confirm Administered Dose 200 mg .ROUTE .STK-MED ONE Stop: 11/14/17 08:26 Propofol (Diprivan 20 Ml) Confirm Administered Dose 200 mg .ROUTE .STK-MED ONE Stop: 11/14/17 10:50 Propofol (Diprivan 20 Ml) Confirm Administered Dose 200 mg .ROUTE .STK-MED ONE Stop: 11/14/17 11:09 Ropivacaine (Naropin 0.5%) Confirm Administered Dose 30 ml .ROUTE .STK-MED ONE Stop: 11/14/17 11:54 Sodium Chloride (Saline Flush) 10 ml FLUSH ASDIRECTED PRN PRN Reason: Keep Vein Open Stop: 11/14/17 18:00 Tranexamic Acid (Cyklokapron) Confirm Administered Dose 1,000 mg .ROUTE .STK- MED ONE Stop: 11/14/17 09:11 Last Admin: 11/14/17 11:25 Dose: 1,000 mg Vancomycin HCl (Vancomycin) Confirm Administered Dose 1 gm .ROUTE .STK-MED ONE Stop: 11/14/17 09:11 Last Admin: 11/14/17 11:20 Dose: 1 gm - Exam Quality Assessment: DVT Prophylaxis General: Alert, Oriented, Cooperative, No Acute Distress HEENT: Pupils Equal, Pupils Reactive, EOMI, Mucous Membr. Moist/[place] Neck: Supple, Trachea Midline, No JVD Lungs: Clear to Auscultation, Normal Respiratory Effort Cardiovascular: Regular Rate, Regular Rhythm GI/Abdominal Exam: Normal Bowel Sounds, Soft, Non-Tender, No Organomegaly, No Distention, No Abnormal Bruit, No Mass, Pelvis Stable (Female) Exam: Deferred Extremities: No Pedal Edema, Normal Capillary Refill, Leg Pain (5/10 but controlled ), Limited Range of Motion, Other (Moses bandage and cooling pack on right leg ) Peripheral Pulses: 2+: Radial (L), Radial (R), Posterior Tibial (L), Posterior Tibial (R), Dorsalis Pedis (L), Dorsalis Pedis (R) Skin: Warm, Dry, Intact Wound/Incisions: Dressing Dry and Intact, No Drainage Neurological: No New Focal Deficit Psy/Mental Status: Alert, Normal Affect, Normal Mood Consult PN Assessment/Plan POD#: 1 Procedures: Procedures C-REACTIVE PROTEIN (04/17/16) COMPLETE CBC W/AUTO DIFF WBC (04/17/16) COMPREHEN METABOLIC PANEL (04/17/16) CT ABD & PELV W/CONTRAST (04/17/16) EMERGENCY DEPT VISIT (04/17/16) HYDRATE IV INFUSION ADD-ON (04/17/16) MR-STAPH DNA AMP PROBE (11/01/17) ROUTINE VENIPUNCTURE (04/17/16) THER/PROPH/DIAG INJ IV PUSH (04/17/16) TX/PRO/DX INJ NEW DRUG ADDON (04/17/16) TX/PRO/DX INJ SAME DRUG CROSS COUNTRY/TRACK AND FIELD COACH (04/17/16) URINALYSIS AUTO W/SCOPE (04/17/16) (1) S/P total knee arthroplasty SNOMED Code(s): 0246706566510, 1630983408490 Code(s): Z96.659 - PRESENCE OF UNSPECIFIED ARTIFICIAL KNEE JOINT Priority: High Current Visit: Yes Qualifiers: Laterality: right Qualified Code(s): Z96.651 - Presence of right artificial knee joint (2) Osteoarthritis SNOMED Code(s): 261017658 Code(s): M19.90 - UNSPECIFIED OSTEOARTHRITIS, UNSPECIFIED SITE Priority: High Current Visit: Yes Qualifiers: Osteoarthritis location: knee Osteoarthritis type: primary Laterality: right Qualified Code(s): M17.11 - Unilateral primary osteoarthritis, right knee (3) HTN (hypertension) SNOMED Code(s): 18247898 Code(s): I10 - ESSENTIAL (PRIMARY) HYPERTENSION Priority: Low Current Visit: No Qualifiers: Hypertension type: unspecified Qualified Code(s): I10 - Essential (primary ) hypertension (4) IBS (irritable bowel syndrome) SNOMED Code(s): 10238031 Code(s): K58.9 - IRRITABLE BOWEL SYNDROME WITHOUT DIARRHEA Priority: Low Current Visit: No Qualifiers: Irritable bowel syndrome type: unspecified Qualified Code(s): K58.9 - Irritable bowel syndrome without diarrhea (5) Chronic back pain SNOMED Code(s): 961593965 Code(s): M54.9 - DORSALGIA, UNSPECIFIED; G89.29 - OTHER CHRONIC PAIN Priority: Low Current Visit: No Qualifiers: Back pain location: back pain in unspecified location Back pain laterality : unspecified Qualified Code(s): M54.9 - Dorsalgia, unspecified; G89.29 - Other chronic pain; G89.29 - Other chronic pain (6) Peripheral neuropathy SNOMED Code(s): 342384031 Code(s): G62.9 - POLYNEUROPATHY, UNSPECIFIED Priority: Low Current Visit : No Qualifiers: Peripheral neuropathy type: polyneuropathy, unspecified Qualified Code(s): G62.9 - Polyneuropathy, unspecified (7) Anxiety SNOMED Code(s): 49971845 Code(s): F41.9 - ANXIETY DISORDER, UNSPECIFIED Priority: Low Current Visit: No (8) Insomnia SNOMED Code(s): 322086192 Code(s): G47.00 - INSOMNIA, UNSPECIFIED Priority: Low Current Visit: No Qualifiers: Insomnia type: unspecified Qualified Code(s): G47.00 - Insomnia, unspecified (9) Obesity (BMI 30-39.9) SNOMED Code(s): 715736928 Code(s): E66.9 - OBESITY, UNSPECIFIED Priority: Low Current Visit: No (10) Nausea SNOMED Code(s): 823347471 Code(s): R11.0 - NAUSEA Priority: High Current Visit: Yes Problem List Initiated/Reviewed/Updated: Yes My Orders Last 24 Hours: My Active Orders 11/14/17 21:00 Potassium Chloride [Klor-Con M20] 40 meq PO TID Plan: I/P: Acute: S/P Right total knee arthroplasty - post-operative day 0 -DVT prophylaxis and pain management per primary care team -PT/OT -IS/RT -Monitor oxygen saturation -Titrate oxygen as needed -Vital signs stable -Monitor labs -Pre-operative Hgb was 15.2, 13.2 today -Pre-operative leukocytosis (13.4)-->14.01 today, CRP was normal Osteoarthritis of Right knee -Pain management per primary care team Hypokalemia -resolved -Potassium 3.2 pre-operatively, 4.3 today -Supplement -Monitor with AM labs -Defer to PCP to monitor and treat as needed Nausea, mild - resolved -Post-operative -Zofran now -Scopolamine patch if needed Chronic (Home meds): Long Qt - telemetry HTN IBS Chronic back pain Peripheral neuropathy Anxiety Insomnia Obesity Plan: CM for discharge planning GI prophylaxis Home medications as indicated Other orders as listed above Routine AM labs She is a full code. Her PCP is Dr. Chau in [place] From a hospitalist standpoint she is doing very well and cleared for discharge pending primary orthopedic team agreement. Thank you for allowing us to participate in the care of this patient!!
[2017-11-15] MEDS: Cyclobenzaprine 10 MG Tab PO PRN ×2 (06:52→13:51)
--- NOTE | 2017-11-15 08:43 | PCM.SURGPN ---
- General Info Date of Service: 11/15/17 POD#: 1 Functional Status: Reports: Pain Controlled, Tolerating Diet, Ambulating, Urinating, Incentive Spirometry - Review of Systems Musculoskeletal: Reports: Other (The pt states pain is controlled and she is prepared for discharge to home.) - Patient Data Vitals - Most Recent: Last Vital Signs Temp 99.7 F 11/15/17 04:28 Pulse 88 11/14/17 14:02 Resp 18 11/15/17 05:00 BP 121/60 11/15/17 04:28 Pulse Ox 96 11/15/17 05:00 Weight - Most Recent: 225 lb I&O - Last 24 Hours: Intake & Output 11/14/17 11/15/17 11/15/17 22:59 06:59 14:59 Intake Total 400 450 Output Total 400 Balance 0 450 Lab Results Last 24 Hrs: Laboratory Results - last 24 hr 11/14/17 11/15/17 11/15/17 Range/Units 08:22 05:42 05:52 WBC 14.01 H (3.98-10.04) K/mm3 RBC 4.39 (3.98-5.22) M/mm3 Hgb 13.2 (11.2-15.7) gm/L Hct 40.6 (34.1-44.9) % MCV 92.5 (79.4-94.8) fl MCH 30.1 (25.6-32.2) pg MCHC 32.5 (32.2-35.5) g/dl RDW Std Deviation 47.1 H (36.4-46.3) fL Plt Count 243 (182-369) K/mm3 MPV 9.7 (9.4-12.3) fl Sodium 140 139 (136-145) mEq/L Potassium 3.2 L 4.3 (3.5-5.1) mEq/L Chloride 99 102 (98-107) mEq/L Carbon Dioxide 30 27 (21-32) mEq/L Anion Gap 14.2 14.3 (5-15) BUN 14 9 (7-18) mg/dL Creatinine 0.8 0.8 (0.55-1.02) mg/dL Est Cr Clr Drug Dosing TNP 84.54 Estimated GFR (MDRD) > 60 > 60 (>60) mL/min BUN/Creatinine Ratio 17.5 11.3 L (14-18) Glucose 119 H 128 H (74-106) mg/dL Calcium 9.7 8.8 (8.5-10.1) mg/dL Total Bilirubin 0.7 (0.2-1.0) mg/dL AST 18 (15-37) U/L ALT 26 (14-59) U/L Alkaline Phosphatase 39 L (46-116) U/L Total Protein 6.1 L (6.4-8.2) g/dl Albumin 3.1 L (3.4-5.0) g/dl Globulin 3.0 gm/dL Albumin/Globulin Ratio 1.0 (1-2) Med Orders - Current: Current Medications Hydrocodone Bitart/Acetaminophen ([place] 325-5 Mg) 1 - 2 tab PO Q4H PRN PRN Reason: Pain Last Admin: 11/15/17 06:51 Dose: 2 tab Aspirin (Ecotrin) 325 mg PO BID [facility] Bisacodyl (Dulcolax) 5 mg PO DAILY PRN PRN Reason: Constipation Cyclobenzaprine HCl (Flexeril) 10 mg PO TID PRN PRN Reason: Spasms Last Admin: 11/15/17 06:52 Dose: 10 mg Diphenhydramine HCl (Benadryl) 25 mg IVPUSH Q4H PRN PRN Reason: Nausea Docusate Sodium (Colace) 100 mg PO BID [facility] Last Admin: 11/14/17 20:32 Dose: 100 mg Famotidine (Pepcid) 20 mg PO BID [facility] Last Admin: 11/14/17 20:33 Dose: 20 mg Gabapentin (Neurontin) 1,200 mg PO TID [facility] Last Admin: 11/14/17 20:32 Dose: 1,200 mg Hydrochlorothiazide (Hydrochlorothiazide) 25 mg PO DAILY [facility] Clindamycin Phosphate 900 mg/ (Dextrose/Water) 106 mls @ 212 mls/hr IV Q8H [facility] Stop: 11/15/17 10:29 Last Admin: 11/15/17 02:25 Dose: 212 mls/hr Ketorolac Tromethamine (Toradol) 15 mg IVPUSH Q6H PRN PRN Reason: Pain Last Admin: 11/15/17 02:23 Dose: 15 mg Lorazepam (Ativan) 0.5 mg PO TID PRN PRN Reason: Anxiety Magnesium Hydroxide (Milk Of Magnesia) 30 ml PO BID PRN PRN Reason: Constipation Metoprolol Succinate (Toprol Xl) 150 mg PO DAILY [facility] Morphine Sulfate (Morphine) 2 mg IVPUSH Q2H PRN PRN Reason: Breakthrough Pain Multivitamins (Thera) 1 each PO DAILY [facility] Naloxone HCl (Narcan) 0.1 mg IVPUSH Q5M PRN PRN Reason: Oversedation Ondansetron HCl (Zofran) 4 mg IVPUSH Q6H PRN PRN Reason: Nausea/Vomiting Last Admin: 11/14/17 16:06 Dose: 4 mg Dhea/Estriol/Testerone Compounded Med 0 each VAG ASDIRECTED [facility] Fluticasone Propionate [Flonase Allergy Relief] 1 - 2 each NASBOTH DAILY PRN PRN Reason: Allergies Progesterone, Micronized [ Prometrium] 200 Mg 0 each PO ACBRK [facility] Last Admin: 11/15/17 06:47 Dose: Not Given Potassium Chloride (Klor-Con M20) 40 meq PO TID [facility] Stop: 11/15/17 15:01 Last Admin: 11/14/17 20:33 Dose: 40 meq Scopolamine (Scopolamine) 1 each TOP ONETIME PRN PRN Reason: Nausea/Vomiting Senna (Senna) 8.6 mg PO BID PRN PRN Reason: Constipation Spironolactone (Aldactone) 25 mg PO DAILY [facility] Zolpidem Tartrate (Ambien) 10 mg PO BEDTIME PRN PRN Reason: Insomnia Discontinued Medications Bupivacaine HCl (Marcaine 0.25%) Confirm Administered Dose 30 ml .ROUTE .STK- MED ONE Stop: 11/14/17 09:11 Bupivacaine HCl (Marcaine 0.25%) Confirm Administered Dose 30 ml .ROUTE .STK- MED ONE Stop: 11/14/17 09:47 Last Admin: 11/14/17 11:19 Dose: 30 ml Cefazolin Sodium (Ancef) Confirm Administered Dose 2 gm .ROUTE .STK-MED ONE Stop: 11/14/17 08:24 Clindamycin Phosphate (Cleocin) Confirm Administered Dose 900 mg .ROUTE .STK- MED ONE Stop: 11/14/17 09:11 Last Admin: 11/14/17 11:13 Dose: 900 mg Morphine Sulfate 8 mg/Epinephrine HCl 0.3 mg/Ketorolac Tromethamine 30 mg/ Sodium Chloride 27.9 ml 0 mg .XX ONETIME ONE Stop: 11/14/17 10:01 Last Admin: 11/14/17 11:18 Dose: 38.3 mg Epinephrine HCl (Adrenalin) Confirm Administered Dose 1 mg .ROUTE .STK-MED ONE Stop: 11/14/17 11:54 Fentanyl (Sublimaze) Confirm Administered Dose 100 mcg .ROUTE .STK-MED ONE Stop: 11/14/17 07:43 Fentanyl (Sublimaze) 50 mcg IVPUSH Q5M PRN PRN Reason: Pain Stop: 11/14/17 10:27 Lactated Ringer's (Ringers, Lactated) 1,000 mls @ 125 mls/hr IV ASDIRECTED BLANCO Stop: 11/14/17 23:00 Last Admin: 11/14/17 12:43 Dose: 125 mls/hr Lidocaine HCl (Xylocaine-Mpf 1%) Confirm Administered Dose 4 mls @ as directed .ROUTE .STK-MED ONE Stop: 11/14/17 07:42 Clindamycin Phosphate 900 mg/ (Dextrose/Water) 106 mls @ 212 mls/hr IV ONETIME ONE Stop: 11/14/17 09:59 Last Admin: 11/14/17 09:08 Dose: 212 mls/hr Lactated Ringer's (Ringers, Lactated) Confirm Administered Dose 1,000 mls @ as directed .ROUTE .STK-MED ONE Stop: 11/14/17 10:28 Promethazine HCl 6.25 mg/ (Sodium Chloride) 9.25 mls @ 5 mls/min IV ONETIME PRN PRN Reason: Nausea Stop: 11/14/17 16:00 Lactated Ringer's (Ringers, Lactated) Confirm Administered Dose 1,000 mls @ as directed .ROUTE .STK-MED ONE Stop: 11/14/17 11:24 Iodine (Iodine 2% Mild Tincture) Confirm Administered Dose 30 ml .ROUTE .STK- MED ONE Stop: 11/14/17 09:11 Last Admin: 11/14/17 11:10 Dose: 18 ml Ketorolac Tromethamine (Toradol) Confirm Administered Dose 30 mg .ROUTE .STK- MED ONE Stop: 11/14/17 08:01 Ketorolac Tromethamine (Toradol) Confirm Administered Dose 30 mg .ROUTE .STK- MED ONE Stop: 11/14/17 11:10 Lidocaine/Sodium Bicarbonate (Buffered Lidocaine 1% In Ns 8.4%) 0.25 ml IDERM ONETIME PRN PRN Reason: Prior to IV Start Stop: 11/14/17 18:00 Last Admin: 11/14/17 08:19 Dose: 0.25 ml Midazolam HCl (Versed 1 Mg/Ml) Confirm Administered Dose 2 mg .ROUTE .STK-MED ONE Stop: 11/14/17 07:43 Midazolam HCl (Versed 1 Mg/Ml) Confirm Administered Dose 2 mg .ROUTE .STK-MED ONE Stop: 11/14/17 10:26 Morphine Sulfate (Duramorph Pf) Confirm Administered Dose 1 mg .ROUTE .STK-MED ONE Stop: 11/14/17 07:35 Ondansetron HCl (Zofran) Confirm Administered Dose 4 mg .ROUTE .STK-MED ONE Stop: 11/14/17 10:30 Ondansetron HCl (Zofran) 4 mg IVPUSH ONETIME PRN PRN Reason: Nausea/Vomiting Stop: 11/14/17 16:00 Last Admin: 11/14/17 12:30 Dose: 4 mg Potassium Chloride (Klor-Con M20) 40 meq PO ONETIME ONE Stop: 11/14/17 16:01 Last Admin: 11/14/17 16:13 Dose: 40 meq Propofol (Diprivan 20 Ml) Confirm Administered Dose 200 mg .ROUTE .STK-MED ONE Stop: 11/14/17 07:43 Propofol (Diprivan 20 Ml) Confirm Administered Dose 200 mg .ROUTE .STK-MED ONE Stop: 11/14/17 08:26 Propofol (Diprivan 20 Ml) Confirm Administered Dose 200 mg .ROUTE .STK-MED ONE Stop: 11/14/17 10:50 Propofol (Diprivan 20 Ml) Confirm Administered Dose 200 mg .ROUTE .STK-MED ONE Stop: 11/14/17 11:09 Ropivacaine (Naropin 0.5%) Confirm Administered Dose 30 ml .ROUTE .STK-MED ONE Stop: 11/14/17 11:54 Sodium Chloride (Saline Flush) 10 ml FLUSH ASDIRECTED PRN PRN Reason: Keep Vein Open Stop: 11/14/17 18:00 Tranexamic Acid (Cyklokapron) Confirm Administered Dose 1,000 mg .ROUTE .STK- MED ONE Stop: 11/14/17 09:11 Last Admin: 11/14/17 11:25 Dose: 1,000 mg Vancomycin HCl (Vancomycin) Confirm Administered Dose 1 gm .ROUTE .STK-MED ONE Stop: 11/14/17 09:11 Last Admin: 11/14/17 11:20 Dose: 1 gm - Exam Wound/Incisions: Dressing Dry and Intact General: Alert, Cooperative, No Acute Distress Lungs: Normal Respiratory Effort Extremities: Other (NVS intact for RLE. Ben's negative.) - Problem List Review Problem List Initiated/Reviewed/Updated: Yes - My Orders Last 24 Hours: Active Orders 24 hr Category Date Time Status Communication Order [RC] ASDIRECTED Care 11/14/17 10:26 Active Notify Provider [RC] ASDIRECTED Care 11/14/17 10:26 Active Oxygen Therapy [RC] ASDIRECTED Care 11/14/17 10:26 Active Pulse Oximetry [RC] ASDIRECTED Care 11/14/17 10:26 Active Ready for Discharge [RC] PER UNIT ROUTINE Care 11/15/17 08:41 Ordered Telemetry Monitoring [Cardiac Monitoring] [RC] . Care 11/14/17 14:23 Active DIRECTED Vital Signs [RC] Q1HR Care 11/14/17 10:26 Active Regular Diet [DIET] Diet 11/14/17 Lunch Active Acetaminophen/HYDROcodone [[place] 325-5 MG] Med 11/14/17 11:00 Active 1 - 2 tab PO Q4H PRN Aspirin [Ecotrin] Med 11/15/17 09:00 Active 325 mg PO BID Bisacodyl [Dulcolax] Med 11/14/17 11:00 Active 5 mg PO DAILY PRN Clindamycin Phosphate [Cleocin] 900 mg Med 11/14/17 18:00 Active Dextrose 5% in Water 100 ml IV Q8H Cyclobenzaprine [Flexeril] Med 11/14/17 11:00 Active 10 mg PO TID PRN Docusate Sodium [Colace] Med 11/14/17 21:00 Active 100 mg PO BID Famotidine [Pepcid] Med 11/14/17 21:00 Active 20 mg PO BID Gabapentin [Neurontin] Med 11/14/17 15:00 Active 1,200 mg PO TID Hydrochlorothiazide Med 11/15/17 09:00 Active 25 mg PO DAILY Ketorolac [Toradol] Med 11/14/17 11:00 Active 15 mg IVPUSH Q6H PRN LORazepam [Ativan] Med 11/14/17 11:44 Active 0.5 mg PO TID PRN Magnesium Hydroxide [Milk of Magnesia] Med 11/14/17 11:00 Active 30 ml PO BID PRN Metoprolol Succinate [Toprol XL] Med 11/15/17 09:00 Active 150 mg PO DAILY Morphine Med 11/14/17 11:00 Active 2 mg IVPUSH Q2H PRN Multivitamins,Therapeutic [Thera] Med 11/15/17 09:00 Active 1 each PO DAILY Naloxone [Narcan] Med 11/14/17 11:00 Active 0.1 mg IVPUSH Q5M PRN Ondansetron [Zofran] Med 11/14/17 11:00 Active 4 mg IVPUSH Q6H PRN Patient's Own Medication [Ptom] Med 11/15/17 06:00 Active 0 each PO ACBRK Patient's Own Medication [Ptom] Med 11/14/17 11:45 Active 0 each VAG ASDIRECTED Patient's Own Medication [Ptom] Med 11/14/17 11:44 Active 1 - 2 each NASBOTH DAILY PRN Potassium Chloride [Klor-Con M20] Med 11/14/17 21:00 Active 40 meq PO TID Scopolamine Med 11/14/17 13:34 Active 1 each TOP ONETIME PRN Sennosides [Senna] Med 11/14/17 11:00 Active 8.6 mg PO BID PRN Spironolactone [Aldactone] Med 11/15/17 09:00 Active 25 mg PO DAILY Zolpidem [Ambien] Med 11/14/17 21:00 Active 10 mg PO BEDTIME PRN diphenhydrAMINE [Benadryl] Med 11/14/17 11:00 Active 25 mg IVPUSH Q4H PRN Pulse Oximetry Continuous Monitoring [OM.PC] Routine Oth 11/14/17 10:26 Active Medication Orders Hydrocodone Bitart/Acetaminophen ([place] 325-5 Mg) 1 - 2 tab PO Q4H PRN PRN Reason: Pain Last Admin: 11/15/17 06:51 Dose: 2 tab Admin: 11/15/17 00:49 Dose: 2 tab Admin: 11/14/17 20:33 Dose: 2 tab Aspirin (Ecotrin) 325 mg PO BID [facility] Bisacodyl (Dulcolax) 5 mg PO DAILY PRN PRN Reason: Constipation Cyclobenzaprine HCl (Flexeril) 10 mg PO TID PRN PRN Reason: Spasms Last Admin: 11/15/17 06:52 Dose: 10 mg Diphenhydramine HCl (Benadryl) 25 mg IVPUSH Q4H PRN PRN Reason: Nausea Docusate Sodium (Colace) 100 mg PO BID [facility] Last Admin: 11/14/17 20:32 Dose: 100 mg Famotidine (Pepcid) 20 mg PO BID [facility] Last Admin: 11/14/17 20:33 Dose: 20 mg Gabapentin (Neurontin) 1,200 mg PO TID [facility] Last Admin: 11/14/17 20:32 Dose: 1,200 mg Admin: 11/14/17 16:12 Dose: 1,200 mg Hydrochlorothiazide (Hydrochlorothiazide) 25 mg PO DAILY [facility] Clindamycin Phosphate 900 mg/ (Dextrose/Water) 106 mls @ 212 mls/hr IV Q8H [facility] Stop: 11/15/17 10:29 Last Admin: 11/15/17 02:25 Dose: 212 mls/hr Infusion: 11/14/17 18:00 Dose: 212 mls/hr Admin: 11/14/17 17:30 Dose: 212 mls/hr Ketorolac Tromethamine (Toradol) 15 mg IVPUSH Q6H PRN PRN Reason: Pain Last Admin: 11/15/17 02:23 Dose: 15 mg Admin: 11/14/17 14:55 Dose: 15 mg Lorazepam (Ativan) 0.5 mg PO TID PRN PRN Reason: Anxiety Magnesium Hydroxide (Milk Of Magnesia) 30 ml PO BID PRN PRN Reason: Constipation Metoprolol Succinate (Toprol Xl) 150 mg PO DAILY [facility] Morphine Sulfate (Morphine) 2 mg IVPUSH Q2H PRN PRN Reason: Breakthrough Pain Multivitamins (Thera) 1 each PO DAILY [facility] Naloxone HCl (Narcan) 0.1 mg IVPUSH Q5M PRN PRN Reason: Oversedation Ondansetron HCl (Zofran) 4 mg IVPUSH Q6H PRN PRN Reason: Nausea/Vomiting Last Admin: 11/14/17 16:06 Dose: 4 mg Dhea/Estriol/Testerone Compounded Med 0 each VAG ASDIRECTED [facility] Fluticasone Propionate [Flonase Allergy Relief] 1 - 2 each NASBOTH DAILY PRN PRN Reason: Allergies Progesterone, Micronized [ Prometrium] 200 Mg 0 each PO ACBRK [facility] Last Admin: 11/15/17 06:47 Dose: Potassium Chloride (Klor-Con M20) 40 meq PO TID [facility] Stop: 11/15/17 15:01 Last Admin: 11/14/17 20:33 Dose: 40 meq Scopolamine (Scopolamine) 1 each TOP ONETIME PRN PRN Reason: Nausea/Vomiting Senna (Senna) 8.6 mg PO BID PRN PRN Reason: Constipation Spironolactone (Aldactone) 25 mg PO DAILY [facility] Zolpidem Tartrate (Ambien) 10 mg PO BEDTIME PRN PRN Reason: Insomnia - Assessment Assessment (Free Text/Narrative):: POD#1 - right TKA - Plan Plan (Free Text/Narrative):: 1. Hgb 13.2. 2. ASA BID, frequent mobility, TEDs for VTE prophylaxis. 3. Outpatient P.T. 4. Discharge to home today. The pt's case was discussed with Dr. Littlejohn today.
[2017-11-15] MEDS ORDERED: Aspirin 325 MG Tab.EC PO SCH (09:00)
[2017-11-15] MEDS ORDERED: Multivitamins,Therapeutic Tab PO SCH (09:00)
[2017-11-15] MEDS ORDERED: Hydrochlorothiazide 25 MG Tab PO SCH (09:00)
[2017-11-15] MEDS ORDERED: Spironolactone 25 MG Tab PO SCH (09:00)
[2017-11-15] MEDS ORDERED: Metoprolol Succinate 50 MG Tab.ER PO SCH (09:00)
[2017-11-15] MEDS: Famotidine 20 MG Tab PO SCH (09:15)
[2017-11-15] MEDS: Potassium Chloride 20 MEQ Tab.ER PO SCH (09:16)
[2017-11-15] MEDS: Gabapentin 600 MG Tab PO SCH (09:16)
[2017-11-15] MEDS: Docusate Sodium 100 MG Cap PO SCH (09:17)
--- NOTE | 2017-11-15 09:39 | PCM48HPAN ---
Post Anesthesia Note - EVALUATION WITHIN 48HRS OF ANESTHETIC Vital Signs in Normal Range: Yes Patient Participated in Evaluation: Yes Respiratory Function Stable: Yes Airway Patent: Yes Cardiovascular Function Stable: Yes Hydration Status Stable: Yes Pain Control Satisfactory: Yes Nausea and Vomiting Control Satisfactory: Yes Mental Status Recovered: Yes
[2017-11-15 11:24] VITALS: BP 130/46
--- NOTE | 2017-11-21 21:44 | PCM.OPNOTE ---
- General Post-Op/Procedure Note Date of Surgery/Procedure: 11/14/17 Operative Procedure(s): right total knee arthroplasty Pre Op Diagnosis: right knee osteoarthrosis Post-Op Diagnosis: Same Anesthesia Technique: Local, MAC, Spinal Primary Surgeon: Elia Littlejohn Anesthesia Provider: Nelson Blanchard Sample Selector: Tiarra Duque Sample Selector: Aniyah Carson EBYenny in mLs: 350 Complications: None Condition: Good
--- NOTE | 2017-11-21 22:29 | OR ---
DATE OF OPERATION: 11/14/2017 SURGEON: Elia Littlejohn MD OPERATION PERFORMED: Right total knee arthroplasty. PREOPERATIVE DIAGNOSIS: Right knee osteoarthrosis. POSTOPERATIVE DIAGNOSIS: Right knee osteoarthrosis. ANESTHESIA: Local MAC with spinal. ANESTHESIA PROVIDER: Nelson Blanchard CRNA. ASSISTANTS: Tiarra Duque PA-C, and Aniyah Carson LPN. ESTIMATED BLOOD LOSS: 350 mL. COMPLICATIONS: None. CONDITION: Stable. IMPLANTS: 1. Lagrange size 5 press-fit CR femur. 2. Dusty size 4 press-fit tibial base plate. 3. Dusty size 4, 9 mm CS polyethylene insert. 4. Lagrange 32 x 10 mm press-fit asymmetric patella. DESCRIPTION OF PROCEDURE: The patient was identified in the preop holding area. Proper site was marked and identified by the surgeon. The patient was taken back to the operating theater. After adequate anesthesia, the patient's right lower extremity had a nonsterile tourniquet applied and it was then sterilely prepped and draped in the usual sterile fashion. OR timeout was performed. The patient received 2 g IV Ancef. At this time, right lower extremity was exsanguinated. Tourniquet was insufflated to 300 mmHg. Standard medial parapatellar incision was made. Medial parapatellar arthrotomy was created. Deep fibers of the MCL were raised and anterior fat pad was resected. At this time, attention was turned to the patella. Patella measured 22, it was resected to a 13 for a 32 x 10 mm patella. Drill holes were then drilled and found to be in adequate position. The drill was then drilled in the distal femur and the intramedullary distal femoral cutting guide was then placed. 8 mm was resected off the distal femur and was found to be an adequate resection. Sizing guide was placed. It was found to be a size 5 press-fit CR femur that was shown on the implant record at the beginning of this dictation. The drill holes were drilled for the epicondylar axis using Whitesides line and epicondyles as reference. At this time, the 4-in - 1 cutting block was placed. An anterior posterior and anterior and posterior chamfer cuts were then completed. The correct size box cut was then placed and the box cut was completed and found to be an adequate resection. Attention was turned to the tibia. The posterior medial lateral retractors were placed. The extramedullary tibial guide was placed. It was placed in the old footprint of the ACL. It was aligned with the center of the ankle and 0 degrees of slope, 9 mm was then resected off the unaffected lateral side. There was found to be an acceptable reduction. At this time, posterior osteophytes were removed along with medial and lateral meniscus. A trial implant was placed with a correct sized tibia that was mentioned at the beginning of the dictation. A Lagrange size 4, 9 mm CS polyethylene was then placed. The patient's knee was brought through range of motion. The patella was tracking centrally and was stable to varus and valgus stress. Alignment was found to be roughly at 0 degrees. The tibia was stamped and drilled in proper rotation. The universal tibial base plate was impacted into place. Next, the Dusty size 5 press-fit CR femur impacted into place and the Dusty size 4, 9 mm CS polyethylene was placed. The patient's knee was brought into full extension. The patella was then press-fit in place at this time. Tourniquet was deflated. One liter dilute Betadine solution was irrigated through the knee along with 3 L of pulse lavage irrigation with Ancef. Periarticular injection was then completed. The patient's knee was brought through a range of motion. Knee was found to be stable to varus valgus stress, the patella was tracking centrally with full range of motion. At this time, a #2 barbed suture was used for closure of the medial parapatellar arthrotomy. Topical tranexamic acid was placed. 2-0 Vicryl was used subcutaneously, a running 3-0 Monocryl was used subcuticularly. The patient tolerated the procedure well and was sent to the PACU in stable condition. MMODAL /[id number] KATHRINE
== END 2017-11-15 14:12 | disposition home or self-care (01) ==
LOC: JD.SDS 07:56 → JD.MS 07:56 → JD.SDS 11-15 14:12
PROVIDERS: ATTEND Orthopaedic Surgery
DX: M17.11 Unilateral primary osteoarthritis, right knee (principal); I10 Essential (primary) hypertension; F41.9 Anxiety disorder, unspecified; E66.9 Obesity, unspecified; Z68.37 Body mass index [BMI] 37.0-37.9, adult; Z79.899 Other long term (current) drug therapy
CPT/HCPCS: 27447; 36415; 64450; 73560; 80048; 80053; 85027; 94762; 97110; 97116; 97161; 97165; 97535; A9270; C1776; J0171; J0690; J1885; J2250; J2270; J2274; J2405; J2795; J3010; J3370; J3490; J7060; J7120; 01402; J2704

== ENCOUNTER 2019-09-19 06:34 | Day surgery (SDC) | payer MEDICAID ==
[~2019-09-19 06:34] MED LIST changes: +Clindamycin Phosphate in D5W 900 MG in Premix Bag 1 BAG IV ONE; +Lactated Ringers 1,000 ML IV SCH; -Lidocaine 1% 4 ML ONE; -Midazolam 1 MG/ML 2 ML SDV ONE; -Morphine PF 1 MG/ML Amp ONE; -Propofol 200 MG/20 ML SDV ONE; -fentaNYL 100 MCG/2 ML SDV ONE
[2019-09-19] MEDS ORDERED: Lidocaine 1% 30 ML SDV ONE (06:49)
[2019-09-19] MEDS ORDERED: Bupivacaine 0.25% 10 ML SDV ONE (06:49)
--- NOTE | 2019-09-19 07:03 | PCM.PREANE ---
Preanesthetic Assessment - Anesthesia/Transfusion/Family Hx Anesthesia History: Prior Anesthesia Without Reaction Family History of Anesthesia Reaction: No Transfusion History: No Prior Transfusion(s) - Review of Systems General: No Symptoms Pulmonary: No Symptoms Cardiovascular: No Symptoms Gastrointestinal: No Symptoms Neurological: Numbness (bilateral "feet toes") Other: Reports: None - Physical Assessment NPO Status Date: 09/18/19 NPO Status Time: 20:00 Height: 1.68 m Weight: 105.959 kg ASA Class: 2 Mental Status: Alert & Oriented x3 Airway Class: Mallampati = 1 Dentition: Reports: Normal Dentition, [place](s) Thyro-Mental Finger Breadths: 3 Mouth Opening Finger Breadths: 3 ROM/Head Extension: Full Lungs: Clear to Auscultation, Normal Respiratory Effort Cardiovascular: Regular Rate, Regular Rhythm - Lab Values: Laboratory Last Values MRSA (PCR) Negative 09/14/19 14:25 - Allergies Allergies/Adverse Reactions: Allergies Allergy/AdvReac Type Severity Reaction Status Date / Time ampicillin Allergy Airway Verified 09/18/19 14:11 Tightness - Blood Blood Available: No Product(s) Available: None - Anesthesia Plan Pre-Op Medication Ordered: Beta Mic Beta Mic: Metoprolol Med Last Dose Date: 09/19/19 Med Last Dose Time: 04:30 - Acknowledgements Anesthesia Type Planned: MAC Pt an Appropriate Candidate for the Planned Anesthesia: Yes Alternatives and Risks of Anesthesia Discussed w Pt/Guardian: Yes Pt/Guardian Understands and Agrees with Anesthesia Plan: Yes PreAnesthesia Questionnaire HEENT History: Reports: Impaired Vision, Sinusitis, Other (See Below) Other HEENT History: dental infection, cerumen impaction, wears glasses Cardiovascular History: Reports: Hypertension Respiratory History: Reports: None, Other (See Below) Other Respiratory History: viral URI with cough Gastrointestinal History: Reports: Chronic Diarrhea, Diverticulosis, Irritable Bowel Syndrome Other Gastrointestinal History: abdominal pain Genitourinary History: Reports: Other (See Below) 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: Other (See Below) Other OB/BYN History: decreased libido, anorgasmia, dyspareunia, vaginal dryness , yeast infection Musculoskeletal History: Reports: Back Pain, Chronic, Osteoarthritis, Other ( See Below) Other Musculoskeletal History: lower back fusion Neurological History: Reports: Neuropathy, Peripheral Psychiatric History: Reports: Anxiety, Other (See Below) Other Psychiatric History: insomnia Endocrine/Metabolic History: Reports: Obesity/BMI 30+ Hematologic History: Reports: Other (See Below) Other Hematologic History: hypokalemia, increased hematocrit, leukocytosis Immunologic History: Reports: None Oncologic (Cancer) History: Reports: None Dermatologic History: Reports: None - Past Surgical History Head Surgeries/Procedures: Reports: None HEENT Surgical History: Reports: None Cardiovascular Surgical History: Reports: None Respiratory Surgical History: Reports: None GI Surgical History: Reports: Appendectomy, Colonoscopy Female Surgical History: Reports: Hysterectomy Endocrine Surgical History: Reports: None Neurological Surgical History: Reports: Other (See Below) Other Neurological Surgeries/Procedures: L4L5 fusion with decompression Musculoskeletal Surgical History: Reports: Knee Replacement, Other (See Below) Other Musculoskeletal Surgeries/Procedures:: bilateral bunionectomies Oncologic Surgical History: Reports: None Dermatological Surgical History: Reports: None - SUBSTANCE USE Smoking Status *Q: Never Smoker Second Hand Smoke Exposure: No Days Per Week of Alcohol Use: 0 Number of Drinks Per Day: 0 Total Drinks Per Week: 0 Recreational Drug Use History: No - HOME MEDS Home Medications: Home Meds Fluticasone Propionate [Flonase Allergy Relief] 1 - 2 spray NASBOTH DAILY PRN [History] LORazepam 0.5 mg PO BID PRN 11/11/17 [History] Metoprolol Succinate [Toprol Xl] 125 mg PO DAILY 11/11/17 [History] traMADol HCl [Tramadol HCl] 100 mg PO QAM 11/11/17 [History] Celecoxib 200 mg PO BTNUNITS 09/18/19 [History] Gabapentin [Neurontin] 100 mg PO TID 09/18/19 [History] Potassium Chloride [Klor-Con M10] 10 meq PO DAILY 09/18/19 [History] buPROPion [buPROPion XL] 150 mg PO DAILY 09/18/19 [History] estradioL [Estradiol] 1 mg PO DAILY 09/18/19 [History] estradioL [Estradiol] 10 mcg VAG Q72H 09/18/19 [History] hydroCHLOROthiazide [Hydrochlorothiazide] 25 mg PO DAILY 09/18/19 [History] traMADol [Ultram] 50 mg PO QPM 09/18/19 [History] - CURRENT (IN HOUSE) MEDS Current Meds: Current Medications Lactated Ringer's (Ringers, Lactated) 1,000 mls @ 125 mls/hr IV ASDIRECTED BLANCO Clindamycin Phosphate 900 mg/ (Sodium Chloride) 106 mls @ 200 mls/hr IV ONETIME ONE Stop: 09/19/19 06:47 Lidocaine/Sodium Bicarbonate (Buffered Lidocaine 1% In Ns 8.4%) 0.25 ml IDERM ONETIME PRN PRN Reason: Prior to IV Start Sodium Chloride (Saline Flush) 10 ml FLUSH ASDIRECTED PRN PRN Reason: Keep Vein Open Discontinued Medications Bupivacaine HCl (Sensorcaine-Mpf 0.25%) Confirm Administered Dose 20 ml .ROUTE .STK-MED ONE Stop: 09/19/19 06:50 Lidocaine HCl (Xylocaine-Mpf 1%) Confirm Administered Dose 30 ml .ROUTE .STK- MED ONE Stop: 09/19/19 06:50
[2019-09-19] MEDS ORDERED: Ondansetron 4 MG/2 ML SDV ONE (07:08)
[2019-09-19] MEDS ORDERED: Propofol 200 MG/20 ML SDV ONE (07:08)
[2019-09-19] MEDS ORDERED: fentaNYL 100 MCG/2 ML SDV ONE (07:09)
[2019-09-19] MEDS ORDERED: Lidocaine 1% 4 ML ONE (07:09)
[2019-09-19] MEDS ORDERED: Midazolam 1 MG/ML 2 ML SDV ONE (07:09)
[2019-09-19] MEDS ORDERED: Ketorolac 30 MG/ML SDV ONE (07:32)
[2019-09-19] MEDS ORDERED: Dexamethasone 4 MG/ML 5 ML MDV ONE (07:32)
[2019-09-19] MEDS ORDERED: fentaNYL 100 MCG/2 ML SDV IVPUSH PRN (07:50)
--- NOTE | 2019-09-19 07:51 | PCM48HPAN ---
Post Anesthesia Note - EVALUATION WITHIN 48HRS OF ANESTHETIC Vital Signs in Normal Range: Yes Patient Participated in Evaluation: Yes Respiratory Function Stable: Yes Airway Patent: Yes Cardiovascular Function Stable: Yes Hydration Status Stable: Yes Pain Control Satisfactory: Yes (fentanyl ordered) Nausea and Vomiting Control Satisfactory: Yes Mental Status Recovered: Yes Vital Signs: Last Vital Signs Temp 36.3 C 09/19/19 06:40 Pulse 66 09/19/19 06:40 Resp 16 09/19/19 06:40 BP 148/82 H 09/19/19 06:40 Pulse Ox 98 09/19/19 06:40 - COMMENTS/OBSERVATIONS Free Text/Narrative:: no anesthesia complications noted
[2019-09-19] MEDS ORDERED: Acetaminophen/HYDROcodone 325-5 MG Tab PO PRN (07:52)
[2019-09-19 08:36] VITALS: PULSE 64
[2019-09-19 09:48] VITALS: BP 122/89
--- NOTE | 2019-09-19 13:21 | PCM.OPNOTE ---
- General Post-Op/Procedure Note Date of Surgery/Procedure: 09/19/19 Operative Procedure(s): left thumb a1 katie release Pre Op Diagnosis: left thumb stenosing tenosynovitis Post-Op Diagnosis: Same Anesthesia Technique: Local, MAC Primary Surgeon: Elia Littlejohn Anesthesia Provider: Sal Leung Senior Care Provider: Tiarra Duque EBL in mLs: 5 Complications: None Condition: Good Free Text/Narrative:: Intake & Output 09/18/19 09/19/19 09/19/19 22:59 06:59 14:59 Intake Total 390 Balance 390
--- NOTE | 2019-09-21 10:00 | OR ---
DATE OF OPERATION: 09/19/2019 SURGEON: Elia Littlejohn MD OPERATION PERFORMED: Left thumb A1 katie release. PREOPERATIVE DIAGNOSIS: Left thumb stenosing tenosynovitis. POSTOPERATIVE DIAGNOSIS: Left thumb stenosing tenosynovitis. ANESTHESIA: Local MAC. ANESTHESIA PROVIDER: Sal Leung CRNA. FORENSIC SERGEANT: Tiarra Duque PA-C. ESTIMATED BLOOD LOSS: Less than 5 mL. COMPLICATIONS: None. CONDITION: Stable. DESCRIPTION OF PROCEDURE: The patient was identified in the preop holding area. Proper site was marked and identified by surgeon. The patient was taken back to the operating theater where after adequate anesthesia, the patient's left upper extremity was sterilely prepped and draped in the usual sterile fashion. OR time-out was performed. The patient received 2 g of IV Ancef at this time. The left upper extremity, an Esmarch was used as a tourniquet on the forearm. Incisional site was made over the A1 katie. Blunt dissection was taken down to the A1 katie, and using a Hockley blade as well as a tenotomy, the A1 katie was released both proximally and distally. The tendon was brought out through the wound and was found to have no adhesions and was intact. At this time, it was found to be adequate release. Adequate saline was irrigated through the wound. A 4-0 nylon simple suture was used for closure of the skin, and the patient had a sterile soft dressing applied. [id number] /[id number]
== END 2019-09-19 09:10 | disposition home or self-care (01) ==
LOC: JD.SDS 06:34
PROVIDERS: ATTEND Orthopaedic Surgery
DX: M65.312 Trigger thumb, left thumb (principal); M17.0 Bilateral primary osteoarthritis of knee; K21.9 Gastro-esophageal reflux disease without esophagitis; I10 Essential (primary) hypertension; F41.9 Anxiety disorder, unspecified; E66.9 Obesity, unspecified; Z88.0 Allergy status to penicillin; Z79.899 Other long term (current) drug therapy; Z68.39 Body mass index [BMI] 39.0-39.9, adult
CPT/HCPCS: 26055; 87641; A9270; J1100; J1885; J2001; J2250; J2405; J2704; J3010; J3490; J7120

== ENCOUNTER 2022-12-21 14:58 | Emergency (ER) | payer MEDICAID ==
[2022-12-21] MEDS ORDERED: Ondansetron 4 MG/2 ML SDV IVPUSH ONE (16:38)
[2022-12-21] MEDS ORDERED: HYDROmorphone 0.5 MG/0.5 ML Syringe IVPUSH ONE (16:38)
[2022-12-21] MEDS ORDERED: Sodium Chloride 0.9% 1,000 ML IV SCH (16:45)
[2022-12-21] MEDS ORDERED: Iopamidol 612 MG/ML 100 ML Bottle IVPUSH ONE (17:20)
[2022-12-21] MEDS ORDERED: Potassium Chloride 20 MEQ Tab.ER PO ONE (17:58)
[2022-12-21 18:35] VITALS: BP 112/70; PULSE 77
== END 2022-12-21 18:28 | disposition home or self-care (01) ==
LOC: JD.ED 14:58
DX: K57.32 Diverticulitis of large intestine without perforation or abscess without bleeding (principal); I10 Essential (primary) hypertension; E66.9 Obesity, unspecified; Z68.39 Body mass index [BMI] 39.0-39.9, adult; Z88.0 Allergy status to penicillin; Z86.16 Personal history of COVID-19
CPT/HCPCS: 36415; 74177; 80053; 81001; 83735; 84702; 85025; 86140; 96361; 96374; 96375; 99284; A9270; J1170; J2405; J7030; Q9967

== ENCOUNTER 2023-01-16 11:08 | Emergency (ER) | payer MEDICAID ==
[2023-01-16] MEDS ORDERED: Ondansetron 4 MG/2 ML SDV IVPUSH ONE (11:28)
[2023-01-16] MEDS ORDERED: Sodium Chloride 0.9% 1,000 ML IV ONE (11:28)
[2023-01-16] MEDS ORDERED: HYDROmorphone 1 MG/ML Syringe IVPUSH ONE (11:28)
[2023-01-16] MEDS ORDERED: Sodium Chloride 0.9% 10 ML Syringe FLUSH PRN (11:28)
[2023-01-16] MEDS ORDERED: Meclizine 25 MG Tab PO ONE (11:29)
[2023-01-16] MEDS ORDERED: Iopamidol 612 MG/ML 100 ML Bottle IVPUSH ONE (11:36)
[2023-01-16] MEDS: Sodium Chloride 0.9% 10 ML Syringe FLUSH ONE ×2 (11:51→11:58)
[2023-01-16 12:03] LABS: BASOPHILS ABSOLUTE AUTO 0.06 K/mm3 (0.01-0.08); EOSINOPHILS PERCENT AUTO 0 (0.7-5.8); HEMATOCRIT 45.1 % (34.1-44.9); LYMPHOCYTES ABSOLUTE AUTO 1.78 K/mm3 (1.18-3.74); LYMPHOCYTES PERCENT AUTO 30.2 % (19.3-51.7); MEAN CORPUSCULAR HEMOGLOBIN 29.1 pg (25.6-32.2); MEAN CORPUSCULAR HGB CONC 33.3 g/dl (32.2-35.5); MEAN CORPUSCULAR VOLUME 87.6 fl (79.4-94.8); MEAN PLATELET VOLUME 9.7 fl (9.4-12.3); MONOCYTES ABSOLUTE AUTO 0.46 K/mm3 (0.24-0.36); MONOCYTES PERCENT AUTO 7.8 % (4.7-12.5); NEUTROPHILS ABSOLUTE AUTO 3.59 K/mm3 (1.56-6.13); PLATELET COUNT,PLT 251 K/mm3 (182-369); RED BLOOD CELL COUNT 5.15 M/mm3 (3.98-5.22); WHITE BLOOD CELL COUNT,WBC 5.89 K/mm3 (3.98-10.04)
[2023-01-16 12:24] LABS: A/G RATIO 1.1 (1-2); ALANINE AMINOTRANSFERASE,ALT 27 U/L (14-59); ALBUMIN 3.6 g/dl (3.4-5.0); ALKALINE PHOSPHATASE 47 U/L (46-116); ANION GAP 9.4 (5-15); ASPARTATE AMNIOTRANSFERASE,AST 15 U/L (15-37); BILIRUBIN TOTAL 0.4 mg/dL (0.2-1.0); BLOOD UREA NITROGEN,BUN 17 mg/dL (7-18); BUN/CREATININE RATIO 18.9 (14-18); C-REACTIVE PROTEIN <0.2 mg/dL (<1.0); CALCIUM 8.6 mg/dL (8.5-10.1); CARBON DIOXIDE,CO2 28 mEq/L (21-32); CHLORIDE,CL 105 mEq/L (98-107); CREATININE 0.9 mg/dL (0.55-1.02); EST CRCL DRUG DOSING (CG) 63.14 mL/min; ESTIMATED GFR 77 mL/min (>60); GLUCOSE RANDOM 112 mg/dL (70-99); LIPASE 282 U/L (73-393); MAGNESIUM 1.7 mg/dL (1.8-2.4); POTASSIUM,K 3.4 mEq/L (3.5-5.1); PROTEIN TOTAL,TP 6.8 g/dl (6.4-8.2); SODIUM,NA 139 mEq/L (136-145)
[2023-01-16 13:55] LABS: APPEARANCE,URINE CLEAR (Clear); BILIRUBIN,URINE NEGATIVE (Negative); COLOR,URINE YELLOW (Yellow); GLUCOSE,URINE NEGATIVE (Negative); KETONES,URINE NEGATIVE (Negative); LEUKOCYTE ESTERASE,URINE NEGATIVE (Negative); NITRITE,URINE NEGATIVE (Negative); OCCULT BLOOD,URINE NEGATIVE (Negative); PROTEIN,URINE NEGATIVE (Negative); UROBILINOGEN,URINE 0.2 (0.2-1.0)
[2023-01-16 14:11] LABS: BACTERIA,URINE RARE /hpf (FEW); MUCUS,URINE NOT SEEN /hpf (FEW); RBC,URINE 0-5 /hpf (0-5); SQUAMOUS EPITHELIAL CELLS,UR 0-5 /hpf (0-5); WBC,URINE 0-5 /hpf (0-5)
[2023-01-16 14:19] VITALS: BP 145/84; PULSE 88
== END 2023-01-16 14:15 | disposition home or self-care (01) ==
LOC: JD.ED 11:08
DX: K57.32 Diverticulitis of large intestine without perforation or abscess without bleeding (principal); R42 Dizziness and giddiness; I10 Essential (primary) hypertension; E66.9 Obesity, unspecified; Z88.0 Allergy status to penicillin; Z86.16 Personal history of COVID-19; Z79.899 Other long term (current) drug therapy; Z68.39 Body mass index [BMI] 39.0-39.9, adult
CPT/HCPCS: 36415; 74177; 80053; 81001; 83690; 83735; 85025; 86140; 96361; 96374; 96375; 99284; A9270; J1170; J2405; J3490; J7030; Q9967

== ENCOUNTER 2023-07-10 18:31 | Emergency (ER) | payer MEDICAID ==
[2023-07-10] MEDS ORDERED: Sodium Chloride 0.9% 10 ML Syringe FLUSH PRN (18:56)
[2023-07-10 19:01] LABS: BASOPHILS ABSOLUTE AUTO 0.1 K/mm3 (0.0-0.2); BASOPHILS PERCENT AUTO 0.8 % (0.0-1.0); HEMATOCRIT 46.8 % (37.0-47.0); HEMOGLOBIN 15.9 gm/dl (12.0-16.0); IMMATURE GRAN ABSOLUTE AUTO 0.02 K/mm3 (0.00-0.05); IMMATURE GRAN PERCENT AUTO 0.2 % (0.0-0.4); LYMPHOCYTES ABSOLUTE AUTO 2.7 K/mm3 (1.0-4.8); MEAN CORPUSCULAR HEMOGLOBIN 30.2 pg (28.0-32.0); MEAN PLATELET VOLUME 9.3 fl (9.4-12.3); MONOCYTES ABSOLUTE AUTO 0.6 K/mm3 (0.0-0.8); MONOCYTES PERCENT AUTO 7.2 % (0.0-8.0); NEUTROPHILS ABSOLUTE AUTO 5.2 K/mm3 (1.8-7.7); NEUTROPHILS PERCENT AUTO 60.8 % (41.0-71.0); PLATELET COUNT,PLT 239 K/mm3 (150-400); RED BLOOD CELL COUNT 5.26 M/mm3 (4.10-5.30)
[2023-07-10] MEDS ORDERED: Ondansetron 4 MG/2 ML SDV IVPUSH ONE (19:01)
[2023-07-10] MEDS ORDERED: HYDROmorphone 0.5 MG/0.5 ML Syringe IVPUSH ONE (19:01)
[2023-07-10] MEDS ORDERED: Naloxone 0.4 MG/ML SDV IVPUSH PRN (19:01)
[2023-07-10] MEDS ORDERED: Lactated Ringers 1,000 ML IV SCH (19:15)
[2023-07-10 19:18] LABS: A/G RATIO 1.2 (1-2); ANION GAP 11.5 (5-15); BILIRUBIN TOTAL 0.3 mg/dL (0.2-1.0); BUN/CREATININE RATIO 14.4 (14-18); C-REACTIVE PROTEIN 0.2 mg/dL (<1.0); CALCIUM 9.1 mg/dL (8.5-10.1); CREATININE 0.9 mg/dL (0.55-1.02); EST CRCL DRUG DOSING (CG) 63.14 mL/min; PROTEIN TOTAL,TP 7.3 g/dl (6.4-8.2)
[2023-07-10 19:22] LABS: POTASSIUM,K 3.5 mEq/L (3.5-5.1)
[2023-07-10] MEDS ORDERED: Iopamidol 612 MG/ML 100 ML Bottle IVPUSH ONE (19:35)
[2023-07-10] MEDS ORDERED: Sodium Chloride 0.9% 10 ML Syringe FLUSH ONE (19:35)
[2023-07-10 21:18] LABS: APPEARANCE,URINE CLEAR (Clear); BILIRUBIN,URINE NEGATIVE (Negative); COLOR,URINE YELLOW (Yellow); GLUCOSE,URINE NEGATIVE (Negative); KETONES,URINE NEGATIVE (Negative); LEUKOCYTE ESTERASE,URINE NEGATIVE (Negative); NITRITE,URINE NEGATIVE (Negative); OCCULT BLOOD,URINE NEGATIVE (Negative); PROTEIN,URINE NEGATIVE (Negative); UROBILINOGEN,URINE 0.2 (0.2-1.0)
[2023-07-10] MEDS ORDERED: Metoclopramide 10 MG/2 ML SDV IVPUSH ONE (21:19)
[2023-07-10] MEDS ORDERED: Magnesium Citrate Solution 296 ML Bottle PO ONE (21:38)
[2023-07-10] MEDS ORDERED: Bisacodyl 5 MG Tab PO SCH (21:45)
[2023-07-10 22:24] VITALS: BP 132/69; PULSE 69
== END 2023-07-10 22:03 | disposition home or self-care (01) ==
LOC: JD.ED 18:31
DX: K59.01 Slow transit constipation (principal); R11.0 Nausea; I10 Essential (primary) hypertension; E66.9 Obesity, unspecified; Z86.16 Personal history of COVID-19; Z79.899 Other long term (current) drug therapy; Z88.0 Allergy status to penicillin; Z68.41 Body mass index [BMI] 40.0-44.9, adult
CPT/HCPCS: 36415; 74177; 80053; 81003; 83690; 85025; 86140; 96361; 96374; 96375; 99284; A9270; J1170; J2405; J2765; J3490; J7120; Q9967

== ENCOUNTER 2023-10-07 14:15 | Emergency (ER) | payer MEDICAID ==
[2023-10-07] MEDS ORDERED: Metoclopramide 10 MG/2 ML SDV IVPUSH ONE (14:39)
[2023-10-07] MEDS ORDERED: LORazepam 2 MG/ML SDV IVPUSH ONE (14:39)
[2023-10-07] MEDS ORDERED: diphenhydrAMINE 50 MG/ML SDV IVPUSH ONE (14:41)
[2023-10-07] MEDS ORDERED: Sodium Chloride 0.9% 1,000 ML IV SCH (14:45)
[2023-10-07 17:50] VITALS: BP 124/75; PULSE 74
== END 2023-10-07 17:47 | disposition home or self-care (01) ==
LOC: JD.ED 14:15
DX: H81.10 Benign paroxysmal vertigo, unspecified ear (principal); I10 Essential (primary) hypertension; E66.9 Obesity, unspecified; Z90.49 Acquired absence of other specified parts of digestive tract; Z90.710 Acquired absence of both cervix and uterus; Z79.899 Other long term (current) drug therapy; Z88.0 Allergy status to penicillin; Z68.41 Body mass index [BMI] 40.0-44.9, adult
CPT/HCPCS: 70450; 70450-26; 96374; 96375; 99284; 99284-25; J1200; J2060; J2765; J7030

== ENCOUNTER 2024-02-20 14:13 | Emergency (ER) | payer MEDICAID ==
[2024-02-20 15:56] VITALS: BP 144/84; PULSE 72
== END 2024-02-20 15:55 | disposition home or self-care (01) ==
LOC: JD.ED 14:13
DX: M25.562 Pain in left knee (principal); I10 Essential (primary) hypertension; Z88.0 Allergy status to penicillin; Z79.899 Other long term (current) drug therapy; Z90.710 Acquired absence of both cervix and uterus
CPT/HCPCS: 99283; 99284

== ENCOUNTER 2024-06-25 09:15 | Day surgery (SDC) | payer MEDICAID ==
[~2024-06-25 09:15] MED LIST changes: -Clindamycin Phosphate in D5W 900 MG in Premix Bag 1 BAG IV ONE; +Dexamethasone 4 MG/ML 5 ML MDV ONE; -Lactated Ringers 1,000 ML IV SCH; -Lidocaine 1%/Sod Bicarbonate in NS 8.4% 1 ML Syringe IDERM PRN; +Morphine 8 MG, EPINEPHrine 0.3 MG, Cefuroxime 750 MG, Ketorolac 30 MG, Sodium Chloride ... PRN; +Morphine 8 MG, EPINEPHrine 0.3 MG, Ketorolac 30 MG, Sodium Chloride 0.9% 7.9 ML PRN; +Propofol 200 MG/20 ML SDV ONE; +Ropivacaine 0.5% 5 MG/ML 30 ML SDV ONE; +Sodium Chloride 0.9% 10 ML Syringe FLUSH SCH; +ceFAZolin 2 GM Vial ONE; +dexmedeTOMIDine HCl 200 MCG/2 ML SDV ONE; +fentaNYL 100 MCG/2 ML SDV ONE
[2024-06-25] MEDS: Lactated Ringers 1,000 ML IV SCH (09:45)
[2024-06-25] MEDS ORDERED: Scopalamine 1mg/3day Transdermal Patch TRDERM ONE (10:00)
[2024-06-25] MEDS: oxyCODONE ER 10 MG TAB.ER PO ONE (10:08)
[2024-06-25] MEDS: Pregabalin 25 MG Cap PO ONE (10:08)
[2024-06-25] MEDS: Acetaminophen 325 MG Tab PO ONE (10:08)
[2024-06-25] MEDS ORDERED: EPINEPHrine 1 MG/ML SDV ONE (10:15)
[2024-06-25] MEDS ORDERED: Clindamycin Phosphate in D5W 50 ML IV ONE (10:19)
[2024-06-25] MEDS ORDERED: Midazolam 1 MG/ML 2 ML SDV ONE (10:34)
[2024-06-25] MEDS ORDERED: Ondansetron 4 MG/2 ML SDV ONE (11:13)
[2024-06-25] MEDS ORDERED: Propofol 200 MG/20 ML SDV ONE ×2 (11:32→11:58)
[2024-06-25] MEDS ORDERED: Lactated Ringers 1,000 ML ONE (11:44)
[2024-06-25] MEDS: Morphine 8 MG, EPINEPHrine 0.3 MG, Ketorolac 30 MG, Sodium Chloride 0.9% 7.9 ML PRN (11:59)
[2024-06-25] MEDS: Tranexamic Acid 1,000 MG/10 ML Vial ONE (12:10)
[2024-06-25] MEDS ORDERED: HYDROmorphone 0.5 MG/0.5 ML Syringe IVPUSH PRN (12:58)
[2024-06-25] MEDS ORDERED: Ondansetron 4 MG/2 ML SDV IVPUSH PRN (12:58)
[2024-06-25] MEDS ORDERED: Ketorolac 30 MG/ML SDV IVPUSH SCH (13:00)
[2024-06-25] MEDS: fentaNYL 100 MCG/2 ML SDV IVPUSH PRN (13:05)
[2024-06-25 14:25] VITALS: BP 135/67; PULSE 71
[2024-06-25] MEDS: oxyCODONE 5 MG Tab PO PRN (14:37)
[2024-06-25] MEDS: Vancomycin 1 GM SDV ONE (15:42)
== END 2024-06-25 15:15 | disposition home or self-care (01) ==
LOC: JD.SDS 09:15
PROVIDERS: ATTEND Orthopaedic Surgery
DX: M17.12 Unilateral primary osteoarthritis, left knee (principal); I10 Essential (primary) hypertension; K21.9 Gastro-esophageal reflux disease without esophagitis; F41.9 Anxiety disorder, unspecified; Z79.899 Other long term (current) drug therapy; Z88.0 Allergy status to penicillin
CPT/HCPCS: 0055T; 27447; 64447; 73560; 97161; A9270; C1713; C1776; J0171; J0736; J1100; J1885; J2250; J2270; J2405; J2704; J2795; J3010; J3370; J7120; 01402; J0690; J3490